=== PATIENT | female | born 1970 | race Caucasian/White ===

== ENCOUNTER 2019-05-08 16:14 | Inpatient (IN) | payer OTHER ==
--- NOTE | 2019-05-08 16:30 | PDOC ---
Rapid Medical Evaluation Time Seen by Provider: 05/08/19 16:16 Medical Evaluation: Allergies Allergy/AdvReac Type Severity Reaction Status Date / Time No Known Allergies Allergy Verified 08/01/15 19:42 05/08/19 16:27 I have performed a brief exam on this patient. CC: Chest pain, SOB, spinal tingling and feels "like I'm being hit in the hips with a hammer" PE: Speaking full sentences. Lungs CTAB. RRR. No m/r/g. No spinal or hip tenderness. Orders: cardiac w/u The patient will proceed to the ER for further evaluation. Discharge Disposition - Diagnosis Chest pain - Referrals - Patient Instructions - Post Discharge Activity
[2019-05-08 17:46] LABS: BASO % 0.5 % (0-2.0); EOS % 0.7 % (0-4.5); HEMATOCRIT 43.3 % (32.4-45.2); HEMOGLOBIN 14.5 GM/dL (10.7-15.3); MCH 29.2 pg (25.7-33.7); MCHC 33.6 g/dl (32.0-36.0); MEAN CELL VOLUME 87.1 fl (80-96); MEAN PLT VOLUME 9.5 fl (7.5-11.1); MONO % 7.9 % (3.8-10.2); NEUT % 62.9 % (42.8-82.8); PLATELET COUNT 258 K/MM3 (134-434); RBC 4.97 M/mm3 (3.60-5.2); WHITE BLOOD COUNT 9.3 K/mm3 (4.0-10.0)
[2019-05-08 18:11] LABS: ALBUMIN 4.2 g/dl (3.4-5.0); BILIRUBIN,TOTAL 0.4 mg/dL (0.2-1); BLOOD UREA NITROGEN 10.8 mg/dL (7-18); CALCIUM 9.8 mg/dL (8.5-10.1); CREATININE 0.8 mg/dL (0.55-1.3); POTASSIUM 4.1 mmol/L (3.5-5.1); TOT PROT 8.4 g/dl (6.4-8.2)
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
[2019-05-08 18:29] LABS: URINE APPEARANCE CLEAR; URINE BILIRUBIN NEGATIVE (NEGATIVE); URINE COLOR YELLOW; URINE GLUCOSE (UA) NEGATIVE (NEGATIVE); URINE KETONE NEGATIVE (NEGATIVE); URINE LEUK ESTERASE NEGATIVE (NEGATIVE); URINE NITRITE NEGATIVE (NEGATIVE); URINE PROTEIN NEGATIVE (NEGATIVE); URINE UROBILINOGEN 0.2 mg/dL (0.2-1.0)
--- NOTE | 2019-05-08 18:30 | PDOC ---
Documentation entered by Susan Palomino SCRIBE, acting as scribe for Cortney Doty MD. Cortney Doty MD: This documentation has been prepared by the Candelario cutler Mackenzie, SCRIBE, under my direction and personally reviewed by me in its entirety. I confirm that the documentation accurately reflects all work , treatment, procedures, and medical decision making performed by me. Attending Attestation - Resident Resident Name: JeffDelores - ED Attending Attestation I have performed the following: I have examined & evaluated the patient, The case was reviewed & discussed with the resident, I agree w/resident's findings & plan - HPI HPI: The patient is a 48 year old female, with a significant PMH of MS (diagnosed 2011) who presents to the emergency department with 2 weeks of worsening chest pressure. Patient states that the pressure has worsened in severity and become more frequent in the past 2 weeks. She also notes her symptoms secondary to MS have recently become worse (tripping more often, unable to get around the house with ease, numbness and tingling radiating down her legs with more strength). Two days ago she notes an episode where her vision in her right eye went daniels for a few hours and then went back to normal. The patient denies, shortness of breath, headache and dizziness. Denies fever, chills, nausea, vomiting, diarrhea and constipation. Denies dysuria, frequency, urgency and hematuria. Allergies: NKDA Neurologist: Carolyn 05/08/19 18:02 - Physicial Exam PE: 05/08/19 17:54 GENERAL: The patient is in no acute distress, answers all questions appropriately ENT: Moist mucous membranes. NECK: Normal range of motion, supple, no nuchal rigidity LUNGS: Breath sounds equal, clear to auscultation bilaterally. No wheezes, and no crackles. HEART:Regular rate and rhythm, normal S1 and S2 without murmur, rub or gallop. No chest wall tenderness to palpation ABDOMEN: Soft, nontender, normoactive bowel sounds. EXTREMITIES: Normal range of motion, no edema. NEUROLOGICAL: Cranial nerves II through XII grossly intact. Normal speech. No focal neurological deficits. SKIN: Warm, Dry, normal turgor, no rashes or lesions noted. - Medical Decision Making 05/08/19 17:55 48 yo F h/o HLD and MS (not on any chronic medications) presenting with a complaint of chest pain Pain has been present for the past 2 weeks, midsternal, described as pressure, no radiation, no associated with exertion Pain is intermittent, lasting minutes. She has between 4 and 7 episodes of pain daily Pt was attributing her pain to her MS Pt son encouraged her to come in to the ER Of note, pt has been falling more frequently at home, believes she is having an MS flair Examination not concerning DD: ACS, musculoskeletal pain, Pneumonia, pneumothoax, PE less likely Will do: Labs, EKG, CXR Will contact Neuro re: initiating treatment EKG: NSR rate of 83 bpm, LAD, no st elevation or depression, t waves upright, st segment abn v1 05/08/19 18:30 Laboratory Tests 05/08/19 05/08/19 05/08/19 17:30 17:30 17:55 Sodium 139 Potassium 4.1 Chloride 104 Carbon Dioxide 29 BUN 10.8 Creatinine 0.8 Random Glucose 99 Creatine Kinase 95 Troponin I < 0.02 Urine Blood Negative Urine Nitrite Negative Ur Leukocyte Esterase Negative 05/08/19 19:38 Laboratory Tests 05/08/19 05/08/19 17:30 17:30 WBC 9.3 Hgb 14.5 Hct 43.3 Plt Count [address] head negative Will admit Chest pain unlikely cardiac, will trend call placed to Dr Leon, awaiting response Clinical impression: chest pain, initial presentation ?MS flair, initial presentation
[2019-05-08] MEDS ORDERED: ACETAMINOPHEN 1000 MG/100 ML VIAL (NON FORMULARY) IVPB ONE (18:44)
[2019-05-08 19:29] LABS: INR 0.94 (0.83-1.09); PROTHROMBIN TIME (PATIENT) 11.1 SEC (9.7-13.0)
--- NOTE | 2019-05-08 23:42 | PDOC ---
*Physical Exam - Vital Signs Last Vital Signs Temp Pulse Resp BP Pulse Ox 98 F 88 18 146/75 99 05/08/19 16:27 05/08/19 16:27 05/08/19 16:27 05/08/19 16:27 05/08/19 16:27 ED Treatment Course - LABORATORY CBC & Chemistry Diagram: 05/08/19 17:30 05/08/19 17:30 - ADDITIONAL ORDERS Additional order review: Laboratory Results 05/08/19 05/08/19 05/08/19 17:55 17:30 17:30 PT with INR 11.10 INR 0.94 Sodium Potassium Chloride Carbon Dioxide Anion Gap BUN Creatinine Est GFR (CKD-EPI)AfAm Est GFR (CKD-EPI)NonAf Random Glucose Calcium Magnesium 2.2 Total Bilirubin AST ALT Alkaline Phosphatase Creatine Kinase Troponin I Total Protein Albumin Urine Color Yellow Urine Appearance Clear Urine pH 7.0 Ur Specific [place] 1.021 Urine Protein Negative Urine Glucose (UA) Negative Urine Ketones Negative Urine Blood Negative Urine Nitrite Negative Urine Bilirubin Negative Urine Urobilinogen 0.2 Ur Leukocyte Esterase Negative Urine HCG, Qual 05/08/19 05/08/19 05/08/19 17:30 17:30 17:30 PT with INR INR Sodium 139 Potassium 4.1 Chloride 104 Carbon Dioxide 29 Anion Gap 6 L BUN 10.8 Creatinine 0.8 Est GFR (CKD-EPI)AfAm 101.04 Est GFR (CKD-EPI)NonAf 87.18 Random Glucose 99 Calcium 9.8 Magnesium Total Bilirubin 0.4 AST 21 ALT 39 Alkaline Phosphatase 103 Creatine Kinase 95 Troponin I < 0.02 Total Protein 8.4 H Albumin 4.2 Urine Color Urine Appearance Urine pH Ur Specific [place] Urine Protein Urine Glucose (UA) Urine Ketones Urine Blood Urine Nitrite Urine Bilirubin Urine Urobilinogen Ur Leukocyte Esterase Urine HCG, Qual Negative 05/08/19 17:30 RBC 4.97 MCV 87.1 MCHC 33.6 RDW 13.0 MPV 9.5 Neutrophils % 62.9 Lymphocytes % 28.0 Monocytes % 7.9 Eosinophils % 0.7 Basophils % 0.5 - RADIOLOGY Radiology Studies Ordered: Category Date Time Status HEAD CT WITHOUT CONTRAST [CT] Stat CT Scan 05/08/19 19:26 Completed - Medications Given in the ED: ED Medications Discontinued Medications Generic Name Dose Route Start Last Admin Trade Name Freq PRN Reason Stop Dose Admin Acetaminophen 1,000 mg 05/08/19 18:44 05/08/19 19:09 Ofirmev Injection - IVPB 05/08/19 18:45 1,000 mg ONCE ONE Administration *DC/Admit/Observation/Transfer Diagnosis at time of Disposition: Multiple sclerosis Chest pain Qualifiers: Chest pain type: unspecified Qualified Code(s): R07.9 - Chest pain, unspecified - Discharge Dispostion Condition at time of disposition: Stable Decision to Admit order Date/Time: Decision to Admit Order Category Date Time Status Decision to Admit to Hospital Routine Admission 05/08/19 22:50 Active - Referrals - Patient Instructions - Post Discharge Activity
--- NOTE | 2019-05-09 00:30 | PN ---
Teaching Attending Note ATTENDING PHYSICIAN STATEMENT I saw and evaluated the patient. I reviewed the resident's note and discussed the case with the resident. I agree with the resident's findings and plan as documented. Seen and examined; please refer to resident note for further historical information. Briefly, this is a 48 y/o female presenting to the ER with a CC of multiple issues; weeks of atypical chest pain with CP with some parasthesias , etc. Known demtyelinating disease but did not want repeat LP or to start sofi VS, labs, imaging reviewed NAD, AAO, resting in bed NC AT EOMI PERRLA RRR s1/2 NT ND +BS CN2-12 wnl, no fnd Normal mood, appropriate behavior EKG reviewed; telemetry ordered CXR without acute findings CT head with no acute findings 02/2019 MRI with demyelinating plaques ASSESSMENT AND PLAN:
--- NOTE | 2019-05-09 01:18 | HP ---
CHIEF COMPLAINT: 1. Chest pain 2. Worsening MS symptoms PCP: Dr. Muhammad HISTORY OF PRESENT ILLNESS: Pt is a 48 y/o F w PMH MS presenting to ED with c/o chest pain. Pain is located in sternal region, started 2 weeks ago, characterized by pressure, non-radiating, associated with an increase in MS symptoms such as RIGHT eye blurriness and lower back numbness, has an on/off time course, is not exacerbated or alleviated by anything, not better with change in position, and can vary from discomfort to 10/10 pain. She states she took Aleve with no abatement of symptoms. She denies arm pain, neck pain, jaw pain. Pt denies SOB and NVFD. She states that she has not has heartburn, indegestion or other GERD-like symptoms. Pt reports that she was not formally diagnosed but was made aware of her MS in 2011. With establishment of care and POSITIVE MRI in January 2019 s/p increase in MS symptoms, the pt reports she is considering what medical management to pursue. ER course was notable for: (1) CT head NEG: No acute intracranial path. (2) NEG troponin I x1 Recent Travel: Denies PAST MEDICAL HISTORY: MS PAST SURGICAL HISTORY: Social History: Smoking: Denies Alcohol: Denies Drugs: Denies Family History: Mother - breast cancer, Father - etoh abuse Allergies: NKFDA No Known Allergies Allergy (Verified 05/08/19 16:30) HOME MEDICATIONS: Home Medications Medication Instructions Recorded NK [No Known Home Medication] 08/01/15 REVIEW OF SYSTEMS CONSTITUTIONAL: Absent: fever, chills, diaphoresis, POS generalized weakness, malaise, loss of appetite, weight change HEENT: Absent: rhinorrhea, nasal congestion, throat pain, throat swelling, difficulty swallowing, mouth swelling, ear pain, eye pain, visual changes CARDIOVASCULAR: Absent: POS chest pain, syncope, palpitations, irregular heart rate, lightheadedness, peripheral edema RESPIRATORY: Absent: cough, shortness of breath, dyspnea with exertion, orthopnea, wheezing, stridor, hemoptysis GASTROINTESTINAL: Absent: abdominal pain, abdominal distension, nausea, vomiting, diarrhea, constipation, melena, hematochezia GENITOURINARY: Absent: dysuria, frequency, urgency, hesitancy, hematuria, flank pain, genital pain MUSCULOSKELETAL: Absent: myalgia, arthralgia, joint swelling, POS back pain, neck pain SKIN: Absent: rash, itching, pallor HEMATOLOGIC/IMMUNOLOGIC: Absent: easy bleeding, easy bruising, lymphadenopathy, frequent infections ENDOCRINE: Absent: unexplained weight gain, unexplained weight loss, heat intolerance, cold intolerance NEUROLOGIC: Absent: headache, POS focal weakness or paresthesias, dizziness, unsteady gait, seizure, mental status changes, bladder or bowel incontinence PSYCHIATRIC: Absent: anxiety, depression, suicidal or homicidal ideation, hallucinations. PHYSICAL EXAMINATION Vital Signs - 24 hr 05/08/19 16:27 Temperature 98 F Pulse Rate 88 Respiratory 18 Rate Blood Pressure 146/75 O2 Sat by Pulse 99 Oximetry (%) GENERAL: Awake, alert, and fully oriented, in no acute distress. Antalig posture upon active flexion of back i.e to pivot in bed HEAD: Normal with no signs of trauma. EYES: Pupils equal, round and reactive to light, and POS sluggish accommodation. Extraocular movements intact, sclera anicteric, conjunctiva clear. EARS, NOSE, THROAT: Ears normal, nares patent, oropharynx clear without exudates. Moist mucous membranes. NECK: Normal range of motion, supple without lymphadenopathy, JVD, or masses. LUNGS: Breath sounds equal, clear to auscultation bilaterally. No wheezes, and no crackles. No accessory muscle use. HEART: Regular rate and rhythm, normal S1 and S2 without murmur, rub or gallop. ABDOMEN: Soft, nontender, not distended, normoactive bowel sounds, no guarding, no rebound, no masses. No hepatomegaly or splenomegaly. MUSCULOSKELETAL: Normal range of motion at all joints. No bony deformities or tenderness. No CVA tenderness. UPPER EXTREMITIES: 2+ pulses, warm, well-perfused. No cyanosis. No clubbing. No peripheral edema. LOWER EXTREMITIES: 2+ pulses, warm, well-perfused. No calf tenderness. No peripheral edema. NEUROLOGICAL: Cranial nerves III-XII intact. Normal speech. Normal gait. PSYCHIATRIC: Cooperative. Good eye contact. Appropriate mood and affect. SKIN: Warm, dry, normal turgor, no rashes or lesions noted, normal capillary refill. HEART SCORE 2: 0.9-1.7% risk of adverse cardiac event. In the HEART Score study , these patients were discharged Laboratory Results - last 24 hr 05/08/19 05/08/1919 17:30 17:30 17:30 WBC 9.3 RBC 4.97 Hgb 14.5 Hct 43.3 MCV 87.1 MCH 29.2 MCHC 33.6 RDW 13.0 Plt Count 258 MPV 9.5 Absolute Neuts (auto) 5.9 Neutrophils % 62.9 Lymphocytes % 28.0 Monocytes % 7.9 Eosinophils % 0.7 Basophils % 0.5 Nucleated RBC % 0 PT with INR INR Sodium 139 Potassium 4.1 Chloride 104 Carbon Dioxide 29 Anion Gap 6 L BUN 10.8 Creatinine 0.8 Est GFR (CKD-EPI)AfAm 101.04 Est GFR (CKD-EPI)NonAf 87.18 Random Glucose 99 Calcium 9.8 Magnesium Total Bilirubin 0.4 AST 21 ALT 39 Alkaline Phosphatase 103 Creatine Kinase 95 Troponin I < 0.02 Total Protein 8.4 H Albumin 4.2 Urine Color Urine Appearance Urine pH Ur Specific [place] Urine Protein Urine Glucose (UA) Urine Ketones Urine Blood Urine Nitrite Urine Bilirubin Urine Urobilinogen Ur Leukocyte Esterase Urine HCG, Qual 05/08/19 05/08/19 05/08/19 17:30 17:30 17:30 WBC RBC Hgb Hct MCV MCH MCHC RDW Plt Count MPV Absolute Neuts (auto) Neutrophils % Lymphocytes % Monocytes % Eosinophils % Basophils % Nucleated RBC % PT with INR 11.10 INR 0.94 Sodium Potassium Chloride Carbon Dioxide Anion Gap BUN Creatinine Est GFR (CKD-EPI)AfAm Est GFR (CKD-EPI)NonAf Random Glucose Calcium Magnesium 2.2 Total Bilirubin AST ALT Alkaline Phosphatase Creatine Kinase Troponin I Total Protein Albumin Urine Color Urine Appearance Urine pH Ur Specific [place] Urine Protein Urine Glucose (UA) Urine Ketones Urine Blood Urine Nitrite Urine Bilirubin Urine Urobilinogen Ur Leukocyte Esterase Urine HCG, Qual Negative 05/08/19 17:55 WBC RBC Hgb Hct MCV MCH MCHC RDW Plt Count MPV Absolute Neuts (auto) Neutrophils % Lymphocytes % Monocytes % Eosinophils % Basophils % Nucleated RBC % PT with INR INR Sodium Potassium Chloride Carbon Dioxide Anion Gap BUN Creatinine Est GFR (CKD-EPI)AfAm Est GFR (CKD-EPI)NonAf Random Glucose Calcium Magnesium Total Bilirubin AST ALT Alkaline Phosphatase Creatine Kinase Troponin I Total Protein Albumin Urine Color Yellow Urine Appearance Clear Urine pH 7.0 Ur Specific [place] 1.021 Urine Protein Negative Urine Glucose (UA) Negative Urine Ketones Negative Urine Blood Negative Urine Nitrite Negative Urine Bilirubin Negative Urine Urobilinogen 0.2 Ur Leukocyte Esterase Negative Urine HCG, Qual ASSESSMENT/PLAN: 48 y/o F w PMH MS presenting to ED with CP and increasing neurological symptoms consistent with progressive MS symptomatology # MS - CP concurrent w increasing MS symptoms - Prednisone to control inflammation - Tylenol if pain persists - Refer to neurology # R/O CAD - NEG troponin x1 - NEG EKG # F/E/N - No standig fliuds - F/u electrolytes - Normal diet # DVT prophylaxis - Lovinox # Dispo - Full code - F/U PCP upon d/c Davy Diehl MD Visit type - Emergency Visit Emergency Visit: Yes ED Registration Date: 05/08/19 Care time: The patient presented to the Emergency Department on the above date and was hospitalized for further evaluation of their emergent condition. - New Patient This patient is new to me today: Yes Date on this admission: 05/09/19 - Critical Care Critical Care patient: No ATTENDING PHYSICIAN STATEMENT I saw and evaluated the patient. I reviewed the resident's note and discussed the case with the resident. I agree with the resident's findings and plan as documented. SUBJECTIVE: OBJECTIVE: ASSESSMENT AND PLAN:
--- NOTE | 2019-05-09 08:18 | PN ---
Progress Note, Physician Chief Complaint: Chest Pain History of Present Illness: Previous notes and events reviewed awake and alert NAD complain of pressure like mid chest pain without SOB or dizziness complain of "needle" like pain to back trop neg x 1 - Current Medication List Current Medications: Active Medications Aspirin (Asa -) 81 mg PO DAILY LEONEL Atorvastatin Calcium (Lipitor -) 40 mg PO HS LEONEL Enoxaparin Sodium (Lovenox -) 40 mg SQ DAILY LEONEL - Objective Vital Signs: Vital Signs Temperature 97.8 F 05/09/19 05:40 Pulse Rate 66 05/09/19 05:40 Respiratory Rate 16 05/09/19 05:40 Blood Pressure 120/64 05/09/19 05:40 O2 Sat by Pulse Oximetry (%) 97 05/09/19 05:40 Constitutional: Yes: No Distress, Calm Eyes: Yes: Conjunctiva Clear HENT: Yes: Atraumatic Cardiovascular: Yes: Regular Rate and Rhythm Respiratory: Yes: Regular, CTA Bilaterally Gastrointestinal: Yes: Normal Bowel Sounds, Soft Musculoskeletal: Yes: Muscle Weakness (r side) Extremities: Yes: WNL Edema: No Neurological: Yes: Alert, Weakness (r side weakness) Psychiatric: Yes: Alert Labs: CBC, BMP 05/08/19 17:30 05/08/19 17:30 INR, PTT INR 0.94 (0.83-1.09) 05/08/19 17:30 - ....Imaging Cat Scan: Report Reviewed Problem List - Problems (1) Chest pain Assessment/Plan: -Cardiology consult -Tele monitoring -trop neg x 1, pending repeat trop -Aspirin Code(s): R07.9 - CHEST PAIN, UNSPECIFIED Qualifiers: Chest pain type: unspecified Qualified Code(s): R07.9 - Chest pain, unspecified (2) Multiple sclerosis Assessment/Plan: -Neurology consult -fall precaution Code(s): G35 - MULTIPLE SCLEROSIS Assessment/Plan see problem list dvt ppx
[2019-05-09 09:30] LABS: BLOOD UREA NITROGEN 10.7 mg/dL (7-18); CALCIUM 9.1 mg/dL (8.5-10.1); CREATININE 0.8 mg/dL (0.55-1.3); MAGNESIUM 2.1 mg/dL (1.8-2.4); PHOSPHOROUS 3.5 mg/dL (2.5-4.9); POTASSIUM 4.3 mmol/L (3.5-5.1)
--- NOTE | 2019-05-09 09:36 | CON.NEURO ---
Consult Consult Specialty:: [facility] Referred by:: ER Reason for Consultation:: MS - History of Present Illness History of Present Illness: 48 years old woman with hx of multiple sclerosis recently diagnosed not on any immune modulator presented to the hospital with chest pain and headache. No report of any recent travel no report of any weight loss or weight gain. Patient complains of electrical sensation from the spine going down patient with eye pain patient started on Decadron. No report of any recent head trauma there is no family history of multiple sclerosis patient's MRI in February was consistent with demyelinating disease patient refused a spinal tap patient wants to be on medication - History Source History Provided By: Patient Limitations to Obtaining History: No Limitations - Past Medical History ...LMP: 05/15/14 - Alcohol/Substance Use Hx Alcohol Use: No - Smoking History Smoking history: Never smoked Have you smoked in the past 12 months: No Home Medications - Allergies Allergies/Adverse Reactions: Allergies Allergy/AdvReac Type Severity Reaction Status Date / Time No Known Allergies Allergy Verified 05/08/19 16:30 - Home Medications Home Medications: Ambulatory Orders NK [No Known Home Medication] 08/01/15 Family Disease History - Family Disease History Family History: Denies (stroke) Review of Systems - Review of Systems Neurological: reports: Dizziness, Headache, Incoordination, Numbness, Parasthesia Physical Exam-Neuro Vital Signs: Vital Signs Temperature 97.8 F 05/09/19 05:40 Pulse Rate 66 05/09/19 05:40 Respiratory Rate 16 05/09/19 05:40 Blood Pressure 120/64 05/09/19 05:40 O2 Sat by Pulse Oximetry (%) 97 05/09/19 05:40 Constitutional: Yes: Well Nourished Neck: Yes: WNL Cardiovascular: Yes: WNL Labs: CBC, BMP 05/09/19 08:24 INR, PTT INR 0.94 (0.83-1.09) 05/08/19 17:30 - Neuro Exam Level Of Consciousness: Yes: Oriented to Person, Oriented to Place, Oriented to Time Eyes: Yes: PERRLA Speech: WNL Dominant Hand: Right Cranial Nerves II-XII Intact: Yes Gag: Present DTR's: 0 Right Bicep, 0 Left Tricep, 1+ Right Tricep, 1+ Left Brachioradialis, 1 + Right Brachioradialis Babinski: Absent Response to light touch: Normal Response to pain prick: Normal Response to temperature: Abnormal Response to vibration: Abnormal Motor Strength: 3/5: Left Arm, Right Arm, Left Leg, Right Leg Imaging - Results MRI: Image Reviewed Problem List - Problems (1) Multiple sclerosis Assessment/Plan: MRI cervical spine with and without contrast Decadron 4 mg IV every 6 hours Famotidine 150 once daily BGM every shift. DVT prophylaxis. Code(s): G35 - MULTIPLE SCLEROSIS
[2019-05-09 09:44] LABS: BASO % 0.4 % (0-2.0); EOS % 0.8 % (0-4.5); HEMATOCRIT 39.4 % (32.4-45.2); HEMOGLOBIN 13.4 GM/dL (10.7-15.3); LYMPH % 34.5 % (8-40); MCH 29.8 pg (25.7-33.7); MCHC 34.1 g/dl (32.0-36.0); MEAN CELL VOLUME 87.3 fl (80-96); MEAN PLT VOLUME 9.4 fl (7.5-11.1); MONO % 6.3 % (3.8-10.2); PLATELET COUNT 238 K/MM3 (134-434); RBC 4.51 M/mm3 (3.60-5.2); RDW 13.1 % (11.6-15.6); WHITE BLOOD COUNT 6.2 K/mm3 (4.0-10.0)
[2019-05-09] MEDS: ENOXAPARIN NA (PORCINE) 40 MG/0.4 ML DISP.SYRIN SQ SCH (09:57)
[2019-05-09] MEDS: ASPIRIN 81 MG CHEWABLE TABLETS PO SCH (09:57)
--- NOTE | 2019-05-09 15:19 | EKG ---
Test Reason : Blood Pressure : / mmHG Vent. Rate : 083 BPM Atrial Rate : 083 BPM P-R Int : 162 ms QRS Dur : 108 ms QT Int : 374 ms P-R-T Axes : 036 -41 040 degrees QTc Int : 439 ms NORMAL SINUS RHYTHM LEFT AXIS DEVIATION MODERATE VOLTAGE CRITERIA FOR LVH, MAY BE NORMAL VARIANT CANNOT RULE OUT SEPTAL INFARCT (CITED ON OR BEFORE 20-MAY-2014) ABNORMAL ECG WHEN COMPARED WITH ECG OF 20-MAY-2014 11:33, NO SIGNIFICANT CHANGE WAS FOUND Confirmed by MD Wesley, Caesar ([id number]) on 05/09/2019 3:19:13 PM Referred By: Confirmed By:Caesar Olson MD
[2019-05-09 16:23] VITALS: BMI 33.0
--- NOTE | 2019-05-09 17:28 | CON.CARD ---
Consult Consult Specialty:: Cardiology Reason for Consultation:: Chest pain - History of Present Illness Chief Complaint: Chest pain History of Present Illness: This is a 48 year old female with a PMH of MS. She presents now with chest pain that she describes as someone hugging her. This has been occurring intermittently for several weeks. It is non radiating and not related to exertion. Trops negative EKG NSR at 83 BPM with LAD, LVH, and NSSTTW changes. - Past Medical History ...LMP: 05/15/14 - Alcohol/Substance Use Hx Alcohol Use: No - Smoking History Smoking history: Never smoked Have you smoked in the past 12 months: No Home Medications - Allergies Allergies/Adverse Reactions: Allergies Allergy/AdvReac Type Severity Reaction Status Date / Time No Known Allergies Allergy Verified 05/08/19 16:30 - Home Medications Home Medications: Ambulatory Orders NK [No Known Home Medication] 08/01/15 Vital Signs: Vital Signs Temperature 98 F 05/09/19 16:06 Pulse Rate 72 05/09/19 16:06 Respiratory Rate 18 05/09/19 16:06 Blood Pressure 147/88 05/09/19 16:06 O2 Sat by Pulse Oximetry (%) 96 05/09/19 14:51 Constitutional: Yes: No Distress Eyes: Yes: WNL HENT: Yes: WNL Neck: Yes: WNL Respiratory: Yes: CTA Bilaterally Gastrointestinal: Yes: Soft Cardiovascular: Yes: Regular Rate and Rhythm Heart Sounds: Yes: S1, S2 Extremities: Yes: WNL Edema: No Neurological: Yes: Alert, Oriented - Other Data Labs, Other Data: CBC, BMP 05/09/19 08:24 05/09/19 08:24 INR, PTT INR 0.94 (0.83-1.09) 05/08/19 17:30 Troponin, BNP 05/08/19 05/09/19 17:30 16:35 Troponin I < 0.02 < 0.02 Troponin, BNP 05/08/19 05/09/19 17:30 16:35 Troponin I < 0.02 < 0.02 Assessment/Plan 48 year old female with a PMH of MS. She presents now with chest pain that she describes as someone hugging her. This has been occurring intermittently for several weeks. It is non radiating and not related to exertion. Trops negative EKG NSR at 83 BPM with LAD, LVH, and NSSTTW changes. Would have her do a Lexiscan stress test and an echocardiogram. These can be done as an outpatient or inpatient is she is going still be here Saturday.
[2019-05-09] MEDS ORDERED: ACETAMINOPHEN 325 MG TABLET (FP) PO PRN (20:34)
[2019-05-09] MEDS: ATORVASTATIN CA 40 MG TABLET (FP) PO SCH (21:28)
[2019-05-09] MEDS: ACETAMINOPHEN 1000 MG/100 ML VIAL (NON FORMULARY) IVPB PRN (21:34)
[2019-05-10 08:10] LABS: HEMOGLOBIN 13.7 GM/dL (10.7-15.3); MCH 29.7 pg (25.7-33.7); MCHC 34.2 g/dl (32.0-36.0); MEAN CELL VOLUME 86.8 fl (80-96); MEAN PLT VOLUME 9.4 fl (7.5-11.1); PLATELET COUNT 229 K/MM3 (134-434); RBC 4.61 M/mm3 (3.60-5.2); RDW 12.8 % (11.6-15.6); WHITE BLOOD COUNT 5.8 K/mm3 (4.0-10.0)
[2019-05-10 08:41] LABS: ALBUMIN 3.7 g/dl (3.4-5.0); ALK PHOS 83 U/L (45-117); ANION GAP 5 MMOL/L (8-16); BILIRUBIN,TOTAL 0.6 mg/dL (0.2-1); CALCIUM 9.4 mg/dL (8.5-10.1); CHLORIDE 108 mmol/L (98-107); CO2 29 mmol/L (21-32); CREATININE 0.8 mg/dL (0.55-1.3); GLUCOSE,RANDOM 88 mg/dL (74-106); SGOT/AST 19 U/L (15-37); SGPT/ALT 35 U/L (13-61); SODIUM 141 mmol/L (136-145); TOT PROT 7.4 g/dl (6.4-8.2)
--- NOTE | 2019-05-10 08:59 | PN ---
Progress Note, Physician Chief Complaint: Chest Pain History of Present Illness: Previous notes and events reviewed awake and alert NAD sts chest pain is improving tingling to hands and feet - Current Medication List Current Medications: Active Medications Acetaminophen (Ofirmev Injection -) 1,000 mg IVPB Q6H PRN PRN Reason: PAIN OR FEVER Last Admin: 05/09/19 21:34 Dose: 1,000 mg Aspirin (Asa -) 81 mg PO DAILY [facility] Last Admin: 05/09/19 09:57 Dose: 81 mg Atorvastatin Calcium (Lipitor -) 40 mg PO HS [facility] Last Admin: 05/09/19 21:28 Dose: 40 mg Dexamethasone Sodium Phosphate (Decadron Injection -) 4 mg IVPB Q6H-IV [facility] Enoxaparin Sodium (Lovenox -) 40 mg SQ DAILY [facility] Last Admin: 05/09/19 09:57 Dose: 40 mg Pantoprazole Sodium (Protonix -) 40 mg PO DAILY [facility] - Objective Vital Signs: Vital Signs Temperature 98.1 F 05/10/19 06:00 Pulse Rate 66 05/10/19 06:00 Respiratory Rate 18 05/10/19 06:00 Blood Pressure 142/65 05/10/19 06:00 O2 Sat by Pulse Oximetry (%) 98 05/09/19 20:23 Constitutional: Yes: No Distress, Calm Eyes: Yes: Conjunctiva Clear HENT: Yes: Atraumatic Cardiovascular: Yes: Regular Rate and Rhythm Respiratory: Yes: Regular, CTA Bilaterally Gastrointestinal: Yes: Normal Bowel Sounds, Soft Musculoskeletal: Yes: Muscle Weakness (R side) Extremities: Yes: WNL Edema: No Neurological: Yes: Alert, Tingling (b/l hands and feet), Weakness (R side) Psychiatric: Yes: Alert, Oriented Labs: CBC, BMP 05/10/19 06:55 05/10/19 06:55 INR, PTT INR 0.94 (0.83-1.09) 05/08/19 17:30 Microbiology 05/08/19 17:55 Urine - Urine Clean Catch Urine Culture - Final NO GROWTH OBTAINED Problem List - Problems (1) Chest pain Assessment/Plan: -Cardiology consult -Tele monitoring -trop neg x 2 -Aspirin -Echo ordered Code(s): R07.9 - CHEST PAIN, UNSPECIFIED Qualifiers: Chest pain type: unspecified Qualified Code(s): R07.9 - Chest pain, unspecified (2) Multiple sclerosis Assessment/Plan: -Neurology on board -fall precaution -pending MRI cervical spine -Decadron 4mg IVPB q6h Code(s): G35 - MULTIPLE SCLEROSIS (3) Hyperlipidemia Assessment/Plan: -Atorvastatin -lipid panel reviewed Code(s): E78.5 - HYPERLIPIDEMIA, UNSPECIFIED Assessment/Plan see problem list dvt ppx
[2019-05-10] MEDS ORDERED: ASPIRIN COATED 81 MG TABLET.EC ONE (11:05)
[2019-05-10] MEDS: ASPIRIN 81 MG CHEWABLE TABLETS PO SCH (12:20)
[2019-05-10] MEDS: DEXAMETHASONE SOD PHOSPHATE 4 MG/1 ML VIAL IVPB SCH ×3 (12:20→22:45)
[2019-05-10] MEDS: ENOXAPARIN NA (PORCINE) 40 MG/0.4 ML DISP.SYRIN SQ SCH (12:21)
[2019-05-10] MEDS: PANTOPRAZOLE 40 MG TABLET (FP) PO SCH (12:21)
[2019-05-10] MEDS: ACETAMINOPHEN 1000 MG/100 ML VIAL (NON FORMULARY) IVPB PRN (12:35)
--- NOTE | 2019-05-10 15:58 | PN ---
Progress Note, Physician Chief Complaint: Chest pain History of Present Illness: This is a 48 year old female with a PMH of MS. She presents now with chest pain that she describes as someone hugging her. This has been occurring intermittently for several weeks. It is non radiating and not related to exertion. Trops negative EKG NSR at 83 BPM with LAD, LVH, and NSSTTW changes. - Current Medication List Current Medications: Active Medications Acetaminophen (Ofirmev Injection -) 1,000 mg IVPB Q6H PRN PRN Reason: PAIN OR FEVER Last Admin: 05/10/19 12:35 Dose: 1,000 mg Aspirin (Asa -) 81 mg PO DAILY [facility] Last Admin: 05/10/19 12:20 Dose: 81 mg Atorvastatin Calcium (Lipitor -) 40 mg PO HS [facility] Last Admin: 05/09/19 21:28 Dose: 40 mg Dexamethasone Sodium Phosphate (Decadron Injection -) 4 mg IVPB Q6H-IV [facility] Last Admin: 05/10/19 12:20 Dose: 4 mg Enoxaparin Sodium (Lovenox -) 40 mg SQ DAILY [facility] Last Admin: 05/10/19 12:21 Dose: 40 mg Pantoprazole Sodium (Protonix -) 40 mg PO DAILY [facility] Last Admin: 05/10/19 12:21 Dose: 40 mg - Objective Vital Signs: Vital Signs Temperature 98.1 F 05/10/19 06:00 Pulse Rate 66 05/10/19 06:00 Respiratory Rate 18 05/10/19 06:00 Blood Pressure 142/65 05/10/19 06:00 O2 Sat by Pulse Oximetry (%) 98 05/09/19 20:23 Constitutional: Yes: No Distress Eyes: Yes: WNL HENT: Yes: WNL Neck: Yes: WNL Cardiovascular: Yes: Regular Rate and Rhythm Respiratory: Yes: WNL, CTA Bilaterally Gastrointestinal: Yes: Normal Bowel Sounds, Soft Extremities: Yes: WNL Edema: No Neurological: Yes: Alert, Oriented Labs: CBC, BMP 05/10/19 06:55 05/10/19 06:55 INR, PTT INR 0.94 (0.83-1.09) 05/08/19 17:30 Assessment/Plan 48 year old female with a PMH of MS. She presents now with chest pain that she describes as someone hugging her. This has been occurring intermittently for several weeks. It is non radiating and not related to exertion. Trops negative EKG NSR at 83 BPM with LAD, LVH, and NSSTTW changes. Would have her do a Lexiscan stress test and an echocardiogram. Further plans pending the above test results.
[2019-05-10] MEDS: ATORVASTATIN CA 40 MG TABLET (FP) PO SCH (22:44)
[2019-05-11] MEDS: DEXAMETHASONE SOD PHOSPHATE 4 MG/1 ML VIAL IVPB SCH ×5 (03:54→21:51)
[2019-05-11 08:40] LABS: BILIRUBIN,TOTAL 0.5 mg/dL (0.2-1); BLOOD UREA NITROGEN 11.6 mg/dL (7-18); CALCIUM 9.4 mg/dL (8.5-10.1); CREATININE 0.8 mg/dL (0.55-1.3); POTASSIUM 4.5 mmol/L (3.5-5.1); TOT PROT 8.1 g/dl (6.4-8.2)
[2019-05-11 09:13] LABS: HEMATOCRIT 40.6 % (32.4-45.2); HEMOGLOBIN 14.1 GM/dL (10.7-15.3); MCH 29.8 pg (25.7-33.7); MCHC 34.8 g/dl (32.0-36.0); MEAN CELL VOLUME 85.8 fl (80-96); MEAN PLT VOLUME 9.6 fl (7.5-11.1); PLATELET COUNT 281 K/MM3 (134-434); RBC 4.74 M/mm3 (3.60-5.2); RDW 12.5 % (11.6-15.6)
[2019-05-11] MEDS ORDERED: REGADENOSON 0.4 MG/5 ML PRE-FILLED SYRINGE IVPUSH ONE ×2 (09:17→10:00)
[2019-05-11] MEDS: PANTOPRAZOLE 40 MG TABLET (FP) PO SCH ×2 (10:25→12:46)
[2019-05-11] MEDS: ASPIRIN 81 MG CHEWABLE TABLETS PO SCH ×2 (10:25→12:46)
[2019-05-11] MEDS: ENOXAPARIN NA (PORCINE) 40 MG/0.4 ML DISP.SYRIN SQ SCH ×2 (10:25→12:46)
--- NOTE | 2019-05-11 12:26 | ECHO ---
Name: BEN CASPER Exam:Adult Echocardiogram Study Date: 05/11/2019 09:28 AM Age: 48 yrs Reason For Study: Chest pain Height: 67 in Weight: 211 lb BSA: 2.1 m2 MMode/2D Measurements & Calculations IVSd: 0.96 cm Ao root diam: 2.7 cm LVIDd: 4.5 cm LA dimension: 3.0 cm LVIDs: 3.1 cm LVPWd: 1.0 cm LVPWs: 1.6 cm EDV(Teich): 94.6 ml ESV(Teich): 38.2 ml LVOT diam: 1.9 cm RV S Homar: 11.1 cm/sec Doppler Measurements & Calculations Ao V2 max: 132.4 cm/sec LV V1 max P.7 mmHg Ao max P.0 mmHg LV V1 mean P.4 mmHg Ao V2 mean: 101.7 cm/sec LV V1 max: 119.8 cm/sec Ao mean P.5 mmHg LV V1 mean: 89.3 cm/sec Ao V2 VTI: 27.8 cm LV V1 VTI: 25.5 cm NELLA(I,D): 2.7 cm2 NELLA(V,D): 2.6 cm2 SV(LVOT): 74.6 ml PA V2 max: 128.3 cm/sec PA max P.6 mmHg Med Peak E' Homar: 7.2 cm/sec Lat Peak E' Homar: 9.5 cm/sec Procedure A complete two-dimensional transthoracic echocardiogram was performed (2D, M-mode, Doppler and color flow Doppler). Left Ventricle The left ventricle is normal in size. Left ventricular systolic function is normal. Ejection Fraction = 65- 70%. No regional wall motion abnormalities noted. Right Ventricle The right ventricle is normal size. The right ventricular systolic function is normal. RV systolic TD I is 11 cm/s. Atria The left atrial size is normal. Right atrial size is normal. Mitral Valve The mitral valve is normal in structure and function. There is no mitral regurgitation noted. Tricuspid Valve The tricuspid valve is normal in structure and function. No tricuspid regurgitation. Aortic Valve The aortic valve is normal in structure and function. No aortic regurgitation is present. Pulmonic Valve The pulmonic valve is not well visualized. Trace pulmonic valvular regurgitation. Great Vessels The aortic root is normal size. Pericardium/Pleura There is no pericardial effusion. Interpretation Summary The left ventricle is normal in size. Left ventricular systolic function is normal. No regional wall motion abnormalities noted. Ejection Fraction = 65-70%. The right ventricular systolic function is normal. The left atrial size is normal. Right atrial size is normal. Trace pulmonic valvular regurgitation. There is no pericardial effusion. Previous study is not available for comparison Jacinto Moran MD 05/11/2019 12:25 PM
--- NOTE | 2019-05-11 15:13 | PN ---
Progress Note, Physician Chief Complaint: patient seen and examined says numbness of leg much better no more chest pressure - Current Medication List Current Medications: Active Medications Acetaminophen (Ofirmev Injection -) 1,000 mg IVPB Q6H PRN PRN Reason: PAIN OR FEVER Last Admin: 05/10/19 12:35 Dose: 1,000 mg Aspirin (Asa -) 81 mg PO DAILY [facility] Last Admin: 05/11/19 12:46 Dose: 81 mg Atorvastatin Calcium (Lipitor -) 40 mg PO HS [facility] Last Admin: 05/10/19 22:44 Dose: 40 mg Dexamethasone Sodium Phosphate (Decadron Injection -) 4 mg IVPB Q6H-IV [facility] Last Admin: 05/11/19 12:46 Dose: 4 mg Enoxaparin Sodium (Lovenox -) 40 mg SQ DAILY [facility] Last Admin: 05/11/19 12:46 Dose: 40 mg Pantoprazole Sodium (Protonix -) 40 mg PO DAILY [facility] Last Admin: 05/11/19 12:46 Dose: 40 mg - Objective Vital Signs: Vital Signs Temperature 98.7 F 05/11/19 09:00 Pulse Rate 84 05/11/19 09:00 Respiratory Rate 20 05/11/19 09:00 Blood Pressure 121/66 05/11/19 09:00 O2 Sat by Pulse Oximetry (%) 96 05/10/19 18:00 Constitutional: Yes: Calm Cardiovascular: Yes: Regular Rate and Rhythm, S1, S2 Respiratory: Yes: CTA Bilaterally Neurological: Yes: Alert, Oriented Labs: CBC, BMP 05/11/19 07:15 05/11/19 07:15 INR, PTT INR 0.94 (0.83-1.09) 05/08/19 17:30 Problem List - Problems (1) Chest pain Assessment/Plan: s/p echo and stress test left ventricle systolic function normal cardiology on board has a cardiac cath done 2 yrs ago was normal Code(s): R07.9 - CHEST PAIN, UNSPECIFIED Qualifiers: Chest pain type: unspecified Qualified Code(s): R07.9 - Chest pain, unspecified (2) Hyperlipidemia Assessment/Plan: statin Code(s): E78.5 - HYPERLIPIDEMIA, UNSPECIFIED (3) Multiple sclerosis Assessment/Plan: iv decadron per neurology MRI pending Code(s): G35 - MULTIPLE SCLEROSIS
--- NOTE | 2019-05-11 15:35 | PN ---
Progress Note, Physician History of Present Illness: seen and examined today in nad. feeling well. no further chest pain. - Current Medication List Current Medications: Active Medications Acetaminophen (Ofirmev Injection -) 1,000 mg IVPB Q6H PRN PRN Reason: PAIN OR FEVER Last Admin: 05/10/19 12:35 Dose: 1,000 mg Aspirin (Asa -) 81 mg PO DAILY [facility] Last Admin: 05/11/19 12:46 Dose: 81 mg Atorvastatin Calcium (Lipitor -) 40 mg PO HS [facility] Last Admin: 05/10/19 22:44 Dose: 40 mg Dexamethasone Sodium Phosphate (Decadron Injection -) 4 mg IVPB Q6H-IV [facility] Last Admin: 05/11/19 12:46 Dose: 4 mg Enoxaparin Sodium (Lovenox -) 40 mg SQ DAILY [facility] Last Admin: 05/11/19 12:46 Dose: 40 mg Pantoprazole Sodium (Protonix -) 40 mg PO DAILY [facility] Last Admin: 05/11/19 12:46 Dose: 40 mg - Objective Vital Signs: Vital Signs Temperature 98.7 F 05/11/19 09:00 Pulse Rate 84 05/11/19 09:00 Respiratory Rate 20 05/11/19 09:00 Blood Pressure 121/66 05/11/19 09:00 O2 Sat by Pulse Oximetry (%) 96 05/10/19 18:00 Constitutional: Yes: No Distress, Calm Eyes: Yes: Conjunctiva Clear, EOM Intact, PERRL HENT: Yes: Atraumatic, Normocephalic Neck: Yes: Supple, Trachea Midline Cardiovascular: Yes: Regular Rate and Rhythm, S1, S2. No: Bradycardia, Tachycardia, Pulse Irregular, Bruit, JVD, Gallop, Murmur, Rub, S3, S4, Varicosities Respiratory: Yes: Regular, CTA Bilaterally. No: Rales, Rhonchi, Wheezes Gastrointestinal: Yes: Normal Bowel Sounds, Soft. No: Distention, Tenderness Extremities: Yes: WNL Edema: No Peripheral Pulses WNL: Yes Peripheral Pulses: Left Doralis Pedis: 2+, Right Dorsalis Pedis: 2+ Neurological: Yes: Alert, Oriented Psychiatric: Yes: Alert, Oriented Labs: CBC, BMP 05/11/19 07:15 05/11/19 07:15 INR, PTT INR 0.94 (0.83-1.09) 05/08/19 17:30 - ....Imaging Chest X-ray: Report Reviewed, Image Reviewed EKG: Report Reviewed, Image Reviewed Other: Report Reviewed, Image Reviewed (tele-no sig arrhythmias recorded) Assessment/Plan 48 year old female with a PMH of MS. She presents now with chest pain that she describes as someone hugging her. This has been occurring intermittently for several weeks. It is non radiating and not related to exertion. Cardiac enzymes wnl EKG NSR at 83 BPM with LAD, LVH, and NSSTTW changes. Echo showed normal LVEF, only minimal valvular abnl Nuclear stress test today showed a possible small area of minimal inferior wall ischemia and normal LVEF Cardiac cath done at [facility] 08/29/2016 for the same stress test results and same symptoms showed normal coronary arteries. Results were reviewed in [facility] EMR Most likely defect secondary to diaphragmatic attenuation artifact Would not recc a repeat cardiac cath at this time. Symptoms unlikely due to CAD Consider alternative sources such as due to her MS or GI in origin Pt followed with Dr. Uriel Knutson in the past who had referred her for cardiac cath in 2016, she plans to fup with him on discharge. Recc outpatient fup and if no other explaination and if symptoms continue or worsen would consider additional cardiac work up at that time. No further inpatient cardiac work up is needed at this time. Pt would be acceptable for discharge from a cardiac standpoint. Please call with any additional questions.
[2019-05-11] MEDS ORDERED: POLYETHYLENE GLYCOL 3350 119 GM BTL PO ONE (16:56)
[2019-05-11] MEDS: ACETAMINOPHEN 1000 MG/100 ML VIAL (NON FORMULARY) IVPB PRN (21:51)
[2019-05-11] MEDS: ATORVASTATIN CA 40 MG TABLET (FP) PO SCH (21:51)
[2019-05-11] MEDS: DOCUSATE SODIUM 100 MG CAPSULE (FP) PO SCH (21:51)
[2019-05-12] MEDS: DEXAMETHASONE SOD PHOSPHATE 4 MG/1 ML VIAL IVPB SCH ×5 (03:30→21:16)
[2019-05-12] MEDS: DOCUSATE SODIUM 100 MG CAPSULE (FP) PO SCH ×3 (06:16→21:16)
--- NOTE | 2019-05-12 09:10 | PN ---
Progress Note, Physician - Current Medication List Current Medications: Active Medications Acetaminophen (Ofirmev Injection -) 1,000 mg IVPB Q6H PRN PRN Reason: PAIN OR FEVER Last Admin: 05/11/19 21:51 Dose: 1,000 mg Aspirin (Asa -) 81 mg PO DAILY [facility] Last Admin: 05/11/19 12:46 Dose: 81 mg Atorvastatin Calcium (Lipitor -) 40 mg PO HS [facility] Last Admin: 05/11/19 21:51 Dose: 40 mg Dexamethasone Sodium Phosphate (Decadron Injection -) 4 mg IVPB Q6H-IV [facility] Last Admin: 05/12/19 03:30 Dose: 4 mg Docusate Sodium (Colace -) 100 mg PO TID [facility] Last Admin: 05/12/19 06:16 Dose: 100 mg Enoxaparin Sodium (Lovenox -) 40 mg SQ DAILY [facility] Last Admin: 05/11/19 12:46 Dose: 40 mg Pantoprazole Sodium (Protonix -) 40 mg PO DAILY [facility] Last Admin: 05/11/19 12:46 Dose: 40 mg - Objective Vital Signs: Vital Signs Temperature 98.1 F 05/12/19 06:00 Pulse Rate 69 05/12/19 06:00 Respiratory Rate 20 05/12/19 06:00 Blood Pressure 136/73 05/12/19 06:00 O2 Sat by Pulse Oximetry (%) 98 05/11/19 22:00 Labs: CBC, BMP 05/11/19 07:15 05/11/19 07:15 INR, PTT INR 0.94 (0.83-1.09) 05/08/19 17:30 Assessment/Plan - Problems (1) Chest pain Assessment/Plan: s/p echo and stress test left ventricle systolic function normal cardiology on board has a cardiac cath done 2 yrs ago was normal Code(s): R07.9 - CHEST PAIN, UNSPECIFIED Qualifiers: Chest pain type: unspecified Qualified Code(s): R07.9 - Chest pain, unspecified (2) Constipation Assessment/Plan: dulcolox and miralax (3) Multiple sclerosis Assessment/Plan: iv decadron per neurology--Follow up MRI pending Code(s): G35 - MULTIPLE SCLEROSIS
[2019-05-12] MEDS ORDERED: BISACODYL 5 MG TABLET.DR (FP) PO ONE (09:15)
[2019-05-12] MEDS ORDERED: PT OWN MED DRAWER 7, Y5N ONE (10:07)
[2019-05-12] MEDS: ASPIRIN 81 MG CHEWABLE TABLETS PO SCH (11:38)
[2019-05-12] MEDS: ENOXAPARIN NA (PORCINE) 40 MG/0.4 ML DISP.SYRIN SQ SCH (11:39)
[2019-05-12] MEDS: PANTOPRAZOLE 40 MG TABLET (FP) PO SCH (11:39)
[2019-05-12] MEDS: POLYETHYLENE GLYCOL 3350 119 GM BTL PO SCH ×2 (11:39→21:17)
[2019-05-12] MEDS: ACETAMINOPHEN 1000 MG/100 ML VIAL (NON FORMULARY) IVPB PRN (14:18)
[2019-05-12] MEDS: ATORVASTATIN CA 40 MG TABLET (FP) PO SCH (21:16)
[2019-05-13] MEDS: DEXAMETHASONE SOD PHOSPHATE 4 MG/1 ML VIAL IVPB SCH ×2 (03:24→10:15)
[2019-05-13] MEDS: DOCUSATE SODIUM 100 MG CAPSULE (FP) PO SCH ×2 (06:33→13:09)
[2019-05-13] MEDS ORDERED: PT OWN MED DRAWER 7, Y5N ONE (10:11)
[2019-05-13] MEDS: ENOXAPARIN NA (PORCINE) 40 MG/0.4 ML DISP.SYRIN SQ SCH (10:15)
[2019-05-13] MEDS: PANTOPRAZOLE 40 MG TABLET (FP) PO SCH (10:15)
[2019-05-13] MEDS: ASPIRIN 81 MG CHEWABLE TABLETS PO SCH (10:15)
--- NOTE | 2019-05-13 10:54 | DS ---
Physical Examination Vital Signs: Vital Signs Temperature 97.9 F 05/13/19 05:46 Pulse Rate 70 05/13/19 05:46 Respiratory Rate 18 05/13/19 05:46 Blood Pressure 150/91 05/13/19 05:46 O2 Sat by Pulse Oximetry (%) 98 05/13/19 01:00 Cardiovascular: Yes: Regular Rate and Rhythm Respiratory: Yes: Regular, CTA Bilaterally Gastrointestinal: Yes: Normal Bowel Sounds, Soft Neurological: Yes: Alert, Oriented, Unsteady Gait (improving--ambulating wit a cane) Labs: CBC, BMP 05/11/19 07:15 05/11/19 07:15 Discharge Summary Reason For Visit: CHEST PAIN Current Active Problems Chest pain (Acute) Hyperlipidemia (Acute) Multiple sclerosis (Acute) Condition: Improved - Instructions Disposition: VNS/HOME HEALTH CARE - Home Medications Comprehensive Discharge Medication List: Ambulatory Orders Aspirin [ASA -] 81 mg PO DAILY tab.chew 05/13/19 Atorvastatin Ca [Lipitor] 40 mg PO HS #30 tablet 05/13/19 Dexamethasone [Decadron -] 4 mg PO QID #30 tablet 05/13/19 Docusate Sodium [Colace -] 100 mg PO TID capsule 05/13/19 Pantoprazole Sodium [Protonix -] 40 mg PO DAILY #30 tablet.ec 05/13/19 Polyethylene Glycol 3350 [Miralax 119 gm Btl -] 17 gm PO BID bottle 05/13/19
[2019-05-13] MEDS: POLYETHYLENE GLYCOL 3350 119 GM BTL PO SCH (11:15)
[2019-05-13] MEDS ORDERED: DEXAMETHASONE 4 MG TABLET (FP) PO SCH (14:00)
[2019-05-13] MEDS ORDERED: ACETAMINOPHEN 325 MG TABLET (FP) PO PRN (15:12)
[2019-05-13 15:38] VITALS: BP 130/70; PULSE 72; TEMP 98.2
== END 2019-05-13 18:55 | disposition home health service (06) | DRG 43 ==
LOC: JER 16:14 → JERBED 22:50 → OBSVTOIN 22:50 → J4W 05-09 15:20
PROVIDERS: ADMIT Internal Medicine; ATTEND Family Medicine
DX: G35 Multiple sclerosis (principal); R07.9 Chest pain, unspecified; E66.9 Obesity, unspecified; R20.2 Paresthesia of skin; Z68.33 Body mass index [BMI] 33.0-33.9, adult; E78.5 Hyperlipidemia, unspecified; K59.00 Constipation, unspecified
CPT/HCPCS: 36415; 70450-TC; 71046-TC-FY; 72156-TC; 78452-TC; 80048; 80053; 80061; 81003; 82550; 83036; 83721; 83735; 84100; 84443; 84484; 84703; 85025; 85027; 85610; 87086; 93005; 93010; 93017; 93306-TC; 97116-GP; 97161-GP; 99284-25; A9502; A9579; J0131; J2785

== ENCOUNTER 2020-05-25 16:59 | Inpatient (IN) | payer OTHER ==
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
[2020-05-25] MEDS ORDERED: methylPREDNISolone NA SUCC 125 MG/2 ML VIAL IVPB ONE (18:44)
--- NOTE | 2020-05-25 18:44 | PDOC ---
Documentation entered by Domenico Melton SCRIBE, acting as scribe for Kane Clark MD. Kane Clark MD: This documentation has been prepared by the Linh cutler Xhesika, SCRIBE, under my direction and personally reviewed by me in its entirety. I confirm that the documentation accurately reflects all work, treatment, procedures, and medical decision making performed by me. Attending Attestation - Resident Resident Name: Erick Hebert - ED Attending Attestation I have performed the following: I have examined & evaluated the patient, The case was reviewed & discussed with the resident, I agree w/resident's findings & plan, Exceptions are as noted - HPI HPI: 05/25/20 18:14 The patient is a 49 year old female, with a significant PMH of MS (diagnosed 2011), Anemia, multiple sclerosis, and fibromialgia who presents to the emergency department with weakness, difficulty ambulating and decreased sensation x 2days. Pt states she is unable to lift her legs, and lift or hold things with her hands. Pt states her symptoms are similar to her previous MS exacerbation. Pt reports 3 days of constipation. The patient denies, shortness of breath, headache and dizziness. Denies fever, nausea, vomiting, diarrhea. Denies dysuria, frequency, urgency and hematuria. Allergies: NKDA Neurologist: Tanvir Weiner - Physicial Exam PE: 05/25/20 18:44 See resident exam - Medical Decision Making 05/25/20 18:44 49 F with likely MS flare. - Labs - Neuro c/s - Admit Discharge - Discharge Information Problems reviewed: Yes Clinical Impression/Diagnosis: Weakness, Multiple sclerosis, Arm weakness - Follow up/Referral - Patient Discharge Instructions - Post Discharge Activity
[2020-05-25] MEDS ORDERED: methylPREDNISolone NA SUCC 125 MG/2 ML VIAL ONE (19:24)
[2020-05-25 19:53] LABS: BILIRUBIN,TOTAL 0.4 mg/dL (0.2-1); BLOOD UREA NITROGEN 12.5 mg/dL (7-18); CALCIUM 9.2 mg/dL (8.5-10.1); CREATININE 0.9 mg/dL (0.55-1.3); POTASSIUM 4.2 mmol/L (3.5-5.1); TOT PROT 7.5 g/dl (6.4-8.2)
[2020-05-25 20:01] LABS: BASO % 0.5 % (0-2.0); EOS % 2.1 % (0-4.5); HEMATOCRIT 40.3 % (32.4-45.2); HEMOGLOBIN 13.7 GM/dL (10.7-15.3); LYMPH % 31.4 % (8-40); MCH 29.8 pg (25.7-33.7); MCHC 33.9 g/dl (32.0-36.0); MEAN CELL VOLUME 87.9 fl (80-96); MEAN PLT VOLUME 9.8 fl (7.5-11.1); MONO % 7.5 % (3.8-10.2); NEUT % 58.5 % (42.8-82.8); PLATELET COUNT 257 K/MM3 (134-434); RBC 4.59 M/mm3 (3.60-5.2); RDW 12.6 % (11.6-15.6); WHITE BLOOD COUNT 6.8 K/mm3 (4.0-10.0)
--- NOTE | 2020-05-25 21:22 | PN ---
Teaching Attending Note Name of Resident: Suresh Farfan ATTENDING PHYSICIAN STATEMENT I saw and evaluated the patient. I reviewed the resident's note and discussed the case with the resident. I agree with the resident's findings and plan as documented. SUBJECTIVE: Patient is a 49 year old woman with a PMH of Multiple sclerosis (diagnosed 2011) , Dry eyes, Anemia and Fibromialgia who presents with difficulty ambulating, weakness and decreased sensation in her legs (R>L) for 2 days. Patient has been dealing with baseline MS symptoms for the last year, has numbness and tingling in her arms and legs but is mild and goes away. Yesterday was having trouble holding a cup in her hand, unable to grasp. Also having decreased sensation to her legs, R>L. Having headache with electric sensation/burning from head down spine to legs as well as lightheadedness, tiredness and feeling chilly without fever. Denies recent injury or fall with head/back injury. Denies vision changes, chest pain, palpitations, SOB, cough, fever, abdominal pain, dizziness, urinary symptoms. Has had constipation for 3 days, last BM 3 days ago. Lives with son. Last adm itted at [facility] last year for an MS flare. Sees Dr. Leon for Neurologic care. Her last MRI was on 01/29/2020 and was reported as no significant interval change compared to the MRI from 03/08/2019. Patient denies palpitations, nausea, vomiting, diarrhea, melena, hematochezia or hematuria. Denies alcohol, tobacco or illicit drug use. No sick contacts or recent travels. Family history of breast cancer in mother and alcohol abuse in father. OBJECTIVE: Alert Vital Signs Period Temp Pulse Resp BP Sys/Shankar Pulse Ox Last 24 Hr 98 F 84 18 143/77 100 HEENT: No Jaundice, eye redness or discharge, PERRLA, EOMI. Normocephalic, atraumatic. External ears are normal and hearing is grossly intact. No nasal discharge. Neck: Supple, nontender. No palpable adenopathy or thyromegaly. No JVD Chest: Good effort. Clear to auscultation and percussion. Heart: Regular. No S3, rub or murmur Abdomen: Not distended, soft, nontender and no HSM. No rebound or guarding. Normal bowel sounds. Ext: Peripheral pulses intact. No leg edema. Skin: Warm and dry. No petechiae, rash or ecchymosis. Neuro: Alert. Oriented x3. Numbness and weakness in both legs; pain with passive movement in both legs. CN 2-12 grossly intact. Psych: Appropriate mood and affect. Good insight. Home Medications Medication Instructions Recorded Aspirin [ASA -] 81 mg PO DAILY tab.chew 05/13/19 Atorvastatin Ca [Lipitor] 40 mg PO HS #30 tablet 05/13/19 Dexamethasone [Decadron -] 4 mg PO QID #30 tablet 05/13/19 Docusate Sodium [Colace -] 100 mg PO TID capsule 05/13/19 Pantoprazole Sodium [Protonix -] 40 mg PO DAILY #30 tablet.ec 05/13/19 Polyethylene Glycol 3350 [Miralax 17 gm PO BID bottle 05/13/19 119 gm Btl -] Abnormal Lab Results 05/25/20 18:48 Chloride 109 H Random Glucose 112 H Current Medications Generic Name Dose Route Start Last Admin Trade Name Travis PRN Reason Stop Dose Admin Docusate Sodium 100 mg 05/26/20 10:00 Colace - PO BID LEONEL Enoxaparin Sodium 40 mg 05/26/20 10:00 Lovenox - SQ DAILY LEONEL Methylprednisolone Sodium Succinate 250 mg 05/26/20 06:00 Solu-Medrol - IVPB Q12H LEONEL Polyethylene Glycol 17 gm 05/26/20 06:00 Miralax (For Daily Use) - PO TID LEONEL ASSESSMENT AND PLAN: 1. Multiple sclerosis Flare up - No acute abnormality on CXR. EKG shows NSR at 88/minute, LVH, LAD and QTc [address]-T wave changes. Not significantly changed compared to prior EKG. Initial troponin is negative. Viral testing for COVID-19 ordered and patient placed on airborne, droplet and contact isolation. Will get urinalysis, give Miralax for constipation, continue Solumedrol 250 mg IV q 6 hours; Pepcid 40 mg PO qd, do neurochecks and implement fall/aspiration precautions. Monitor blood glucose q shift and implement insulin sliding scale. Consult PT/Neurology and discuss whether Baclofen side effects may explain some of her symptoms. Will continue comprehensive care for all of patients comorbid conditions. 2. Obesity Counseled on the risks associated with obesity. Will provide patient all the necessary assistance, counseling and positive reinforcement to facilitate weight loss. Consult equipment validation engineer. 3. DVT prophylaxis - Lovenox 40 mg SQ q 24 hours. 4. Advance directives - Full code
[2020-05-25] MEDS ORDERED: POLYETHYLENE GLYCOL 3350 119 GM BTL PO SCH (23:00)
[2020-05-25] MEDS ORDERED: methylPREDNISolone NA SUCC 1000 MG/8 ML VIAL IVPB SCH (23:30)
--- NOTE | 2020-05-26 00:08 | HP ---
CHIEF COMPLAINT: 2 days of leg heaviness and weakness with headache and electric shocks down her spine and tingling in her hands and feet PCP: Dr. Muhammad HISTORY OF PRESENT ILLNESS: 49 year old female patient with past medical history that includes Multiple Sclerosis diagnosed [address] Leon, anemia, dry eyes, and fibromyalgia, who presented to the emergency room with 2 days of leg heaviness and weakness with headache and electric shocks down her spine and tingling in her hands and feet. The patient reports a band-like headache that wraps around her head. She also has a feeling of significant muscle tightness in her legs and feet bilaterally that hurts. Passive movement of her legs elicits so much pain that the patient jumps up in bed. Her legs are so weak that she is unable to stand or move her legs that much, but she report having no problems with her balance. She has a cane to help her ambulate as well. She also feels mild lightheadedness and is very tired. She says that she can know when her MS will get worse based on how fatigued she feels. Recently she was able to sleep 14 hours but still feel fatigued upon awakening, so she knew her MS was getting worse. The patient also has constipation where she goes to the bathroom once or twice a week. She has been constipated for over a year. She takes both Miralax and Docusate every day, but is afraid of getting addicted to Docusate, so she sometimes only takes the Miralax. The patient reports being compliant with all of her medications. She takes Glatiramir 20mg/mL SQ daily for her MS, and was recently in the past year prescribed Baclofen, which is now a dose of 80mg Baclofen, which is split 40mg in the morning and 40 mg in the afternoon. ER course was notable for: (1) Solu-Medrol 250mg given (2) CXR, ECG (3) Recent Travel: Denies PAST MEDICAL HISTORY: Multiple Sclerosis diagnosed [address] Leon, anemia, dry eyes, and fibromyalgia PAST SURGICAL HISTORY: Right knee procedure for her knee meniscus, Right shoulder procedure, 2 C- Sections Social History: Smoking: Denies Alcohol: Denies Drugs: Denies Allergies No Known Allergies Allergy (Verified 05/25/20 17:13) HOME MEDICATIONS: Home Medications Medication Instructions Recorded Aspirin [ASA -] 81 mg PO DAILY tab.chew 05/13/19 Atorvastatin Ca [Lipitor] 40 mg PO HS #30 tablet 05/13/19 Dexamethasone [Decadron -] 4 mg PO QID #30 tablet 05/13/19 Docusate Sodium [Colace -] 100 mg PO TID capsule 05/13/19 Pantoprazole Sodium [Protonix -] 40 mg PO DAILY #30 tablet.ec 05/13/19 Polyethylene Glycol 3350 [Miralax 17 gm PO BID bottle 05/13/19 119 gm Btl -] REVIEW OF SYSTEMS CONSTITUTIONAL: chills, fatigued and reports can sleep 14 hours and still feel fatigued Absent: no diaphoresis HEENT: headache that feels like band is wrapped around her head Absent: no visual changes RESPIRATORY: difficulty breathing she attributes to 'MS tamar", mild chest congestion Absent: GASTROINTESTINAL: constipation going 1x or 2x per week for past year Absent: no abdominal pain, no nausea, no vomiting, no diarrhea GENITOURINARY: bladder incontinence where she gets urgency and if she doesn't go immediately then urine leaks out Absent: MUSCULOSKELETAL: leg and foot pain bilaterally, feeling of muscle twisting in her legs and feet bilaterally Absent: NEUROLOGIC: mild lightheadedness Absent: no saddle anesthesia SKIN: crawling sensation on legs bilaterally Absent: PHYSICAL EXAMINATION Vital Signs - 24 hr 05/25/20 17:09 Temperature 98 F Pulse Rate 84 Respiratory 18 Rate Blood Pressure 143/77 O2 Sat by Pulse 100 Oximetry (%) GENERAL: Awake, alert, and fully oriented, in no acute distress. HEAD: Normal with no signs of trauma. EYES: Pupils equal, round and reactive to light, extraocular movements intact. No lid lag. EARS, NOSE, THROAT: Ears normal, nares patent, oropharynx clear without exudates. Moist mucous membranes. NECK: Normal range of motion, supple without lymphadenopathy, JVD, or masses. LUNGS: Breath sounds equal, clear to auscultation bilaterally. No wheezes, and no crackles. No accessory muscle use. HEART: Regular rate and rhythm, normal S1 and S2 without murmur, rub or gallop. ABDOMEN: Hard, nontender, high BMI, normoactive bowel sounds, guarding, no rebound, no masses. Surgical scars. MUSCULOSKELETAL: Normal range of motion at all joints. No bony deformities or tenderness. UPPER EXTREMITIES: 2+ pulses, warm, well-perfused. No cyanosis. No clubbing. No peripheral edema. LOWER EXTREMITIES: 2+ pulses, warm, well-perfused. No calf tenderness. No peripheral edema. Muscle tone very tight in legs, thighs, and feet bilaterally. Pain to passive movement of legs and feet bilaterally with patient jumping up due to the pain. NEUROLOGICAL: Cranial nerves II-XII intact. Normal speech. Gait unable to be evaluated due to bilateral LE weakness. Muscle Strength +2/5 in LEs bilaterally. +4/5 in UEs bilaterally. Partial numbness in UEs (from the knees down) and LEs (from the shoulders down) bilaterally with left extremity numbness > right extremity numbness. DTR's +1/4 in UE's bilaterally and +0/4 in LE's bilaterally. Reyes's test negative bilaterally. Babinski sign unable to be elicited bilaterally. Rmvjdk-Cdlf-Wxciuf test negative. No Dysdiadochokinesia. PSYCHIATRIC: Cooperative. Good eye contact. Appropriate mood and affect. SKIN: Warm, dry, normal turgor, no rashes or lesions noted, normal capillary refill. Laboratory Results - last 24 hr 05/25/20 05/25/20 18:48 18:50 WBC 6.8 RBC 4.59 Hgb 13.7 Hct 40.3 MCV 87.9 MCH 29.8 MCHC 33.9 RDW 12.6 Plt Count 257 MPV 9.8 Absolute Neuts (auto) 4.0 Neutrophils % 58.5 Lymphocytes % 31.4 Monocytes % 7.5 Eosinophils % 2.1 D Basophils % 0.5 Nucleated RBC % 0 Sodium 144 Potassium 4.2 Chloride 109 H Carbon Dioxide 27 Anion Gap 8 BUN 12.5 Creatinine 0.9 Est GFR (CKD-EPI)AfAm 87.02 Est GFR (CKD-EPI)NonAf 75.08 Random Glucose 112 H Calcium 9.2 Total Bilirubin 0.4 AST 24 ALT 39 Alkaline Phosphatase 89 Total Protein 7.5 Albumin 4.0 ASSESSMENT/PLAN: 49 year old female patient with past medical history that includes Multiple Sclerosis diagnosed [address] Leon, anemia, dry eyes, and fibromyalgia, who presented to the emergency room with 2 days of leg heaviness and weakness with headache and electric shocks down her spine and tingling in her hands and feet. 1. MS Flare with significant leg weakness - Neurology consulted - 250mg Solu-Medrol given in ED, so patient placed on 250mg [id number] Solu-Medrol until Neurology sees the patient - Fall Risk Precautions - Physical Therapy consult - Neurochecks 2. Lightheadedness - May be secondary to Baclofen side-effect. 2. Leg pain secondary to significant muscle tightness - Muscle relaxant 3. Tension Headache - Tylenol - Muscle relaxant 4. Constipation - Miralax TID - May be secondary to Baclofen side-effect 5. 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 Regular Diet. DVT PPx - Lovenox SQ Family Medical History Family History: As Documented Family Hx Cancer: Mother (Breast Cancer) Family Hx Coronary Artery Disease: Father Visit type - Emergency Visit Emergency Visit: Yes ED Registration Date: 05/25/20 Care time: The patient presented to the Emergency Department on the above date and was hospitalized for further evaluation of their emergent condition. - New Patient This patient is new to me today: Yes Date on this admission: 05/26/20 - Critical Care Critical Care patient: No ATTENDING PHYSICIAN STATEMENT I saw and evaluated the patient. I reviewed the resident's note and discussed the case with the resident. I agree with the resident's findings and plan as documented. SUBJECTIVE: OBJECTIVE: ASSESSMENT AND PLAN:
[2020-05-26] MEDS: ACETAMINOPHEN 325 MG TABLET (FP) PO PRN ×4 (01:09→21:04)
[2020-05-26 02:45] LABS: URINE APPEARANCE CLEAR; URINE BILIRUBIN NEGATIVE (NEGATIVE); URINE COLOR YELLOW; URINE GLUCOSE (UA) 3+ (NEGATIVE); URINE KETONE NEGATIVE (NEGATIVE); URINE LEUK ESTERASE NEGATIVE (NEGATIVE); URINE NITRITE NEGATIVE (NEGATIVE); URINE PROTEIN NEGATIVE (NEGATIVE)
[2020-05-26 03:36] VITALS: BMI 34.2
[2020-05-26] MEDS: POLYETHYLENE GLYCOL 3350 119 GM BTL PO SCH ×3 (05:31→21:05)
[2020-05-26] MEDS: methylPREDNISolone NA SUCC 125 MG/2 ML VIAL IVPB SCH ×2 (05:31→18:24)
[2020-05-26] MEDS: PANTOPRAZOLE 40 MG TABLET PO SCH (06:21)
[2020-05-26] MEDS: INSULIN SLIDING SCALE (NOVOLOG) 1 VIAL SQ SCH ×4 (06:44→21:05)
[2020-05-26 07:04] LABS: HEMATOCRIT 40.6 % (32.4-45.2); HEMOGLOBIN 13.5 GM/dL (10.7-15.3); MCHC 33.3 g/dl (32.0-36.0); MEAN PLT VOLUME 9.5 fl (7.5-11.1); PLATELET COUNT 266 K/MM3 (134-434); RBC 4.67 M/mm3 (3.60-5.2); RDW 12.5 % (11.6-15.6); WHITE BLOOD COUNT 7.6 K/mm3 (4.0-10.0)
[2020-05-26 07:56] LABS: BLOOD UREA NITROGEN 12.3 mg/dL (7-18); CALCIUM 8.8 mg/dL (8.5-10.1); CREATININE 0.9 mg/dL (0.55-1.3); MAGNESIUM 1.8 mg/dL (1.8-2.4); PHOSPHOROUS 1.9 mg/dL (2.5-4.9); POTASSIUM 4.1 mmol/L (3.5-5.1)
[2020-05-26] MEDS: DOCUSATE SODIUM 100 MG CAPSULE (FP) PO SCH ×2 (09:05→21:05)
[2020-05-26] MEDS: ENOXAPARIN NA (PORCINE) 40 MG/0.4 ML DISP.SYRIN SQ SCH (09:06)
--- NOTE | 2020-05-26 11:57 | PN ---
Progress Note, Physician - Current Medication List Current Medications: Active Medications Acetaminophen (Tylenol -) 650 mg PO Q6H PRN PRN Reason: Fever Or Pain Last Admin: 05/26/20 09:05 Dose: 650 mg Documented by: Docusate Sodium (Colace -) 100 mg PO BID [facility] Last Admin: 05/26/20 09:05 Dose: 100 mg Documented by: Enoxaparin Sodium (Lovenox -) 40 mg SQ DAILY [facility] Last Admin: 05/26/20 09:06 Dose: 40 mg Documented by: Insulin Aspart (Novolog Vial Sliding Scale -) 1 vial SQ ACHS [facility]; Protocol Last Admin: 05/26/20 11:29 Dose: 2 unit Documented by: Methylprednisolone Sodium Succinate (Solu-Medrol -) 250 mg IVPB Q12H [facility] Last Admin: 05/26/20 05:31 Dose: 250 mg Documented by: Pantoprazole Sodium (Protonix -) 40 mg PO ACBK [facility] Last Admin: 05/26/20 06:21 Dose: 40 mg Documented by: Polyethylene Glycol (Miralax (For Daily Use) -) 17 gm PO TID [facility] Last Admin: 05/26/20 05:31 Dose: 17 gm Documented by: - Objective Vital Signs: Vital Signs Temperature 97.9 F 05/26/20 10:00 Pulse Rate 92 H 05/26/20 10:00 Respiratory Rate 19 05/26/20 10:00 Blood Pressure 147/84 05/26/20 10:00 O2 Sat by Pulse Oximetry (%) 95 05/26/20 10:00 Cardiovascular: Yes: S1, S2 Respiratory: Yes: Regular, CTA Bilaterally Gastrointestinal: Yes: Normal Bowel Sounds, Soft Edema: No Labs: CBC, BMP 05/26/20 06:24 05/26/20 06:24 Problem List - Problems (1) Multiple sclerosis Assessment/Plan: - Neurology consulted - 250mg Solu-Medrol given in ED, so patient placed on 250mg [id number] Solu-Medrol until Neurology sees the patient - Fall Risk Precautions - Physical Therapy consult - Neurochecks Code(s): G35 - MULTIPLE SCLEROSIS (2) Weakness Assessment/Plan: physical therapry Code(s): R53.1 - WEAKNESS (3) Hyperlipidemia Code(s): E78.5 - HYPERLIPIDEMIA, UNSPECIFIED
--- NOTE | 2020-05-26 12:36 | EKG ---
Test Reason : Blood Pressure : / mmHG Vent. Rate : 088 BPM Atrial Rate : 088 BPM P-R Int : 182 ms QRS Dur : 116 ms QT Int : 376 ms P-R-T Axes : 044 -38 057 degrees QTc Int : 454 ms NORMAL SINUS RHYTHM LEFT AXIS DEVIATION LEFT VENTRICULAR HYPERTROPHY WITH QRS WIDENING CANNOT RULE OUT SEPTAL INFARCT (CITED ON OR BEFORE 20-MAY-2014) ABNORMAL ECG WHEN COMPARED WITH ECG OF 08-MAY-2019 16:16, NO SIGNIFICANT CHANGE WAS FOUND Confirmed by MATEO BOLES MD ([id number]) on 05/26/2020 12:36:06 PM Referred By: Confirmed By:MATEO BOLES MD
[2020-05-26] MEDS ORDERED: MELATONIN 5 MG TABLETS PO ONE (20:16)
--- NOTE | 2020-05-26 20:40 | CON.NEURO ---
Consult Consult Specialty:: [facility] Referred by:: ER Reason for Consultation:: MS - History of Present Illness History of Present Illness: 49 year sold woman with PMH Anxiety CAd OA MS on Tecfedera Came in with incaresing weakness and difficulty with balalnce and equilbiurm Solumderol given No recent tarvel urinary urgency with no incontinence - History Source History Provided By: Patient Limitations to Obtaining History: No Limitations - Past Medical History ...LMP: 03/30/20 ...: No - Alcohol/Substance Use Hx Alcohol Use: No - Smoking History Smoking history: Never smoked Have you smoked in the past 12 months: No Home Medications - Allergies Allergies/Adverse Reactions: Allergies Allergy/AdvReac Type Severity Reaction Status Date / Time No Known Allergies Allergy Verified 05/25/20 17:13 - Home Medications Home Medications: Ambulatory Orders Aspirin [ASA -] 81 mg PO DAILY tab.chew 05/13/19 Atorvastatin Ca [Lipitor] 40 mg PO HS #30 tablet 05/13/19 Dexamethasone [Decadron -] 4 mg PO QID #30 tablet 05/13/19 Docusate Sodium [Colace -] 100 mg PO TID capsule 05/13/19 Pantoprazole Sodium [Protonix -] 40 mg PO DAILY #30 tablet.ec 05/13/19 Polyethylene Glycol 3350 [Miralax 119 gm Btl -] 17 gm PO BID bottle 05/13/19 Family Medical History Family History: Unremarkable Family Hx Cancer: Mother (Breast Cancer) Family Hx Coronary Artery Disease: Father Review of Systems - Review of Systems Neurological: reports: Headache, Incoordination, Numbness, Parasthesia, Pre- Existing Deficit, Tremors, Unsteady Gait Physical Exam-Neuro Vital Signs: Vital Signs Temperature 98 F 05/26/20 18:00 Pulse Rate 95 H 05/26/20 18:00 Respiratory Rate 18 05/26/20 18:00 Blood Pressure 148/78 05/26/20 18:00 O2 Sat by Pulse Oximetry (%) 96 05/26/20 18:00 Constitutional: Yes: Well Nourished Neck: Yes: WNL Cardiovascular: Yes: WNL Labs: CBC, BMP 05/26/20 06:24 05/26/20 06:24 - Neuro Exam Level Of Consciousness: Yes: Oriented to Person, Oriented to Place, Oriented to Time Eyes: Yes: PERRLA Speech: WNL Dominant Hand: Right Cranial Nerves II-XII Intact: Yes Gag: Present DTR's: 1+ Left Bicep, 1+ Right Bicep, 1+ Left Brachioradialis, 1+ Right Brachioradialis Response to light touch: Normal Response to pain prick: Normal Response to temperature: Abnormal Response to vibration: Abnormal Movement Disorders: Involuntary Movements, Spasticity Motor Strength: 3/5: Left Arm, Right Arm, Left Leg, Right Leg Gait: Deferred Imaging - Results MRI: Image Reviewed Problem List - Problems (1) Multiple sclerosis Assessment/Plan: ?? MS exacerbation 1. Fall precautions 2. Tecfedera 120 mg po q12 3. Solumedrol 250 q6 hours 4. MRI brain with and without [place] 5. BGM q shift 6. PT Tanvir Leon MD Neurology Code(s): G35 - MULTIPLE SCLEROSIS
[2020-05-27] MEDS: POLYETHYLENE GLYCOL 3350 119 GM BTL PO SCH ×3 (06:00→21:38)
[2020-05-27] MEDS: methylPREDNISolone NA SUCC 125 MG/2 ML VIAL IVPB SCH ×2 (06:00→17:24)
[2020-05-27] MEDS: INSULIN SLIDING SCALE (NOVOLOG) 1 VIAL SQ SCH ×3 (06:02→16:37)
[2020-05-27] MEDS: PANTOPRAZOLE 40 MG TABLET PO SCH (06:09)
[2020-05-27] MEDS: DOCUSATE SODIUM 100 MG CAPSULE (FP) PO SCH ×2 (09:22→21:38)
[2020-05-27] MEDS: ENOXAPARIN NA (PORCINE) 40 MG/0.4 ML DISP.SYRIN SQ SCH (09:23)
[2020-05-27] MEDS: ACETAMINOPHEN 325 MG TABLET (FP) PO PRN ×2 (09:23→20:04)
--- NOTE | 2020-05-27 11:30 | PN ---
Progress Note, Physician Chief Complaint: MS exacerbation History of Present Illness: NAD Feels better, less weak with steroids MRI brain without contrast reviewed Seen by Neurology - Current Medication List Current Medications: Active Medications Acetaminophen (Tylenol -) 650 mg PO Q6H PRN PRN Reason: Fever Or Pain Last Admin: 05/27/20 09:23 Dose: 650 mg Documented by: Docusate Sodium (Colace -) 100 mg PO BID [facility] Last Admin: 05/27/20 09:22 Dose: 100 mg Documented by: Enoxaparin Sodium (Lovenox -) 40 mg SQ DAILY [facility] Last Admin: 05/27/20 09:23 Dose: 40 mg Documented by: Insulin Aspart (Novolog Vial Sliding Scale -) 1 vial SQ ACHS [facility]; Protocol Last Admin: 05/27/20 06:02 Dose: Not Given Documented by: Methylprednisolone Sodium Succinate (Solu-Medrol -) 250 mg IVPB Q12H [facility] Last Admin: 05/27/20 06:00 Dose: 250 mg Documented by: Pantoprazole Sodium (Protonix -) 40 mg PO ACBK [facility] Last Admin: 05/27/20 06:09 Dose: 40 mg Documented by: Polyethylene Glycol (Miralax (For Daily Use) -) 17 gm PO TID [facility] Last Admin: 05/27/20 06:00 Dose: 17 gm Documented by: - Objective Vital Signs: Vital Signs Temperature 97.4 F L 05/27/20 09:00 Pulse Rate 81 05/27/20 09:00 Respiratory Rate 18 05/27/20 09:00 Blood Pressure 145/62 05/27/20 09:00 O2 Sat by Pulse Oximetry (%) 100 05/27/20 09:00 Constitutional: Yes: Well Nourished, No Distress, Calm Cardiovascular: Yes: Regular Rate and Rhythm Respiratory: Yes: Regular, CTA Bilaterally Gastrointestinal: Yes: Normal Bowel Sounds, Soft Genitourinary: Yes: WNL Musculoskeletal: Yes: Muscle Weakness Extremities: Yes: WNL Edema: No Peripheral Pulses WNL: Yes Neurological: Yes: Alert, Oriented Psychiatric: Yes: Alert, Oriented Labs: CBC, BMP 05/26/20 06:24 05/26/20 06:24 Problem List - Problems (1) Multiple sclerosis Assessment/Plan: -Neurology consult -Stress steroids -MRI brain without contrast reviewed -PT Problems reviewed: Yes Code(s): G35 - MULTIPLE SCLEROSIS Assessment/Plan See problem list
[2020-05-27] MEDS ORDERED: INSULIN (NOVOLOG) ASPART 100 UNITS/ML 10ML VIAL ONE (12:02)
--- NOTE | 2020-05-27 20:22 | PN ---
Progress Note, Physician History of Present Illness: events noted Seen on [facility] floor Slightly better MRI no new lesion I am seeing stone MS cases with clinical relpase with no new lesion ?? flare up of old lesiosn On Steroids - Current Medication List Current Medications: Active Medications Acetaminophen (Tylenol -) 650 mg PO Q6H PRN PRN Reason: Fever Or Pain Last Admin: 05/27/20 20:04 Dose: 650 mg Documented by: Docusate Sodium (Colace -) 100 mg PO BID [facility] Last Admin: 05/27/20 09:22 Dose: 100 mg Documented by: Enoxaparin Sodium (Lovenox -) 40 mg SQ DAILY [facility] Last Admin: 05/27/20 09:23 Dose: 40 mg Documented by: Methylprednisolone Sodium Succinate (Solu-Medrol -) 250 mg IVPB Q12H [facility] Last Admin: 05/27/20 17:24 Dose: 250 mg Documented by: Pantoprazole Sodium (Protonix -) 40 mg PO ACBK [facility] Last Admin: 05/27/20 06:09 Dose: 40 mg Documented by: Polyethylene Glycol (Miralax (For Daily Use) -) 17 gm PO TID [facility] Last Admin: 05/27/20 14:33 Dose: 17 gm Documented by: - Objective Vital Signs: Vital Signs Temperature 96.9 F L 05/27/20 16:30 Pulse Rate 76 05/27/20 16:30 Respiratory Rate 18 05/27/20 16:30 Blood Pressure 174/98 H 05/27/20 16:30 O2 Sat by Pulse Oximetry (%) 98 05/27/20 16:30 Constitutional: Yes: Well Nourished Eyes: Yes: WNL Neurological: Yes: Alert, Oriented, Babinski negative, Cran Nerves II-XII Intact Labs: CBC, BMP 05/26/20 06:24 05/26/20 06:24 Problem List - Problems (1) Multiple sclerosis Assessment/Plan: MRI L Spsine Baclofen 20 mg po q12 Fall precautions PT DVT prophylaxis Tecfedera as out patient Change Solumedrol pulse to Prednisone 60 mg po qd GI prophylaxsi Code(s): G35 - MULTIPLE SCLEROSIS
[2020-05-27] MEDS: MELATONIN 5 MG TABLETS PO PRN (23:09)
[2020-05-28] MEDS: PANTOPRAZOLE 40 MG TABLET PO SCH (06:49)
[2020-05-28] MEDS: POLYETHYLENE GLYCOL 3350 119 GM BTL PO SCH ×3 (06:49→22:23)
[2020-05-28] MEDS: methylPREDNISolone NA SUCC 125 MG/2 ML VIAL IVPB SCH ×2 (06:49→17:57)
[2020-05-28 07:23] LABS: BASO % 0.1 % (0-2.0); HEMATOCRIT 39.3 % (32.4-45.2); LYMPH % 9.9 % (8-40); MCH 28.9 pg (25.7-33.7); MCHC 33.1 g/dl (32.0-36.0); MEAN CELL VOLUME 87.3 fl (80-96); MEAN PLT VOLUME 9.9 fl (7.5-11.1); MONO % 3.2 % (3.8-10.2); NEUT % 86.8 % (42.8-82.8); PLATELET COUNT 241 K/MM3 (134-434); RDW 12.7 % (11.6-15.6); WHITE BLOOD COUNT 14.2 K/mm3 (4.0-10.0)
[2020-05-28 07:47] LABS: ALBUMIN 3.3 g/dl (3.4-5.0); BILIRUBIN,TOTAL 0.2 mg/dL (0.2-1); BLOOD UREA NITROGEN 16.8 mg/dL (7-18); CALCIUM 8.8 mg/dL (8.5-10.1); CREATININE 0.7 mg/dL (0.55-1.3); POTASSIUM 4.1 mmol/L (3.5-5.1); TOT PROT 6.7 g/dl (6.4-8.2)
[2020-05-28] MEDS: ACETAMINOPHEN 325 MG TABLET (FP) PO PRN ×2 (08:49→22:24)
[2020-05-28] MEDS: DOCUSATE SODIUM 100 MG CAPSULE (FP) PO SCH ×2 (09:01→22:24)
[2020-05-28] MEDS: ENOXAPARIN NA (PORCINE) 40 MG/0.4 ML DISP.SYRIN SQ SCH (09:01)
--- NOTE | 2020-05-28 13:38 | PN ---
Progress Note, Physician Chief Complaint: EVENTS AND NOTES REVIEWED ASLEEP LABS REVIEWED - Current Medication List Current Medications: Active Medications Acetaminophen (Tylenol -) 650 mg PO Q6H PRN PRN Reason: Fever Or Pain Last Admin: 05/28/20 08:49 Dose: 650 mg Documented by: Docusate Sodium (Colace -) 100 mg PO BID [facility] Last Admin: 05/28/20 09:01 Dose: 100 mg Documented by: Enoxaparin Sodium (Lovenox -) 40 mg SQ DAILY [facility] Last Admin: 05/28/20 09:01 Dose: 40 mg Documented by: Melatonin (Melatonin) 5 mg PO HS PRN PRN Reason: INSOMNIA Last Admin: 05/27/20 23:09 Dose: 5 mg Documented by: Methylprednisolone Sodium Succinate (Solu-Medrol -) 250 mg IVPB Q12H [facility] Last Admin: 05/28/20 06:49 Dose: 250 mg Documented by: Pantoprazole Sodium (Protonix -) 40 mg PO ACBK [facility] Last Admin: 05/28/20 06:49 Dose: 40 mg Documented by: Polyethylene Glycol (Miralax (For Daily Use) -) 17 gm PO TID [facility] Last Admin: 05/28/20 06:49 Dose: 17 gm Documented by: - Objective Vital Signs: Vital Signs Temperature 98.4 F 05/28/20 10:38 Pulse Rate 62 05/28/20 10:38 Respiratory Rate 19 05/28/20 10:38 Blood Pressure 156/88 05/28/20 10:38 O2 Sat by Pulse Oximetry (%) 95 05/28/20 10:38 Constitutional: Yes: No Distress Cardiovascular: Yes: Regular Rate and Rhythm Respiratory: Yes: CTA Bilaterally Gastrointestinal: Yes: Soft Genitourinary: Yes: Incontinence Musculoskeletal: Yes: Muscle Weakness Neurological: Yes: Pre-Existing Deficit, Weakness Labs: CBC, BMP 05/28/20 06:24 05/28/20 06:24 Problem List - Problems (1) Arm weakness Code(s): R29.898 - OTH SYMPTOMS AND SIGNS INVOLVING THE MUSCULOSKELETAL SYSTEM (2) Multiple sclerosis Code(s): G35 - MULTIPLE SCLEROSIS (3) Weakness Code(s): R53.1 - WEAKNESS Assessment/Plan STEROIDS WILL TAPER SLOWLY DVT PROPHYLAXIS PT EVAL SNF PLACEMENT MONITOR LABS
[2020-05-28] MEDS: MELATONIN 5 MG TABLETS PO PRN (22:25)
--- NOTE | 2020-05-29 05:06 | FALL ---
Fall Exam - Event Witnessed fall: Yes Location of Fall: Patient Room Fall from: While ambulating - Pre-Fall Mental Status: Alert Current Medications: Current Medications Generic Name Dose Route Start Last Admin Trade Name Travis PRN Reason Stop Dose Admin Acetaminophen 650 mg 05/26/20 00:09 05/28/20 22:24 Tylenol - PO 650 mg Q6H PRN Administration Fever Or Pain Docusate Sodium 100 mg 05/26/20 10:00 05/28/20 22:24 Colace - PO 100 mg BID LEONEL Administration Enoxaparin Sodium 40 mg 05/26/20 10:00 05/28/20 09:01 Lovenox - SQ 40 mg DAILY LEONEL Administration Melatonin 5 mg 05/27/20 21:19 05/28/20 22:25 Melatonin PO 5 mg HS PRN Administration INSOMNIA Methylprednisolone Sodium Succinate 250 mg 05/26/20 06:00 05/28/20 17:57 Solu-Medrol - IVPB 250 mg Q12H LEONEL Administration Pantoprazole Sodium 40 mg 05/26/20 07:00 05/28/20 06:49 Protonix - PO 40 mg ACBK LEONEL Administration Polyethylene Glycol 17 gm 05/26/20 06:00 05/28/20 22:23 Miralax (For Daily Use) - PO 17 gm TID LEONEL Administration - Post-Fall Patient Outcome: Pain Only (right knee) Exam Findings: AAOx3, HEENT: Normocephalic non-Traumatic, Conjuctiva Clear, PERRL, +EOMIS, Ears Patent, Nares patent, Oropharynx: No erythema, Mucous Membranes Moist, Neck: Supple, Non-tender, Lungs: CTAB, Heart: RRR, S1, S2. Abdomen: Obese, Soft, Non-Tender, Hypoactive BS. Muscloskeletal: FROM of all extremities, TTP R- Knee, no Abrasions, no Swelling. +2 DTPs Treatment: Analgesia, Ice Pack Vital Signs: Vital Signs Temperature 98.4 F 05/29/20 04:41 Pulse Rate 58 L 05/29/20 04:41 Respiratory Rate 20 05/29/20 04:41 Blood Pressure 141/67 05/29/20 04:41 O2 Sat by Pulse Oximetry (%) 95 05/29/20 04:41 LOC Post-Fall: Unchanged Identify factors for HIGH RISK for Head Injury: Pt on anticoagulant
--- NOTE | 2020-05-29 05:17 | HOSP ---
Subjective - Review of Symptoms Events since last encounter: Hospitalist Encounter: Notified by the RN that the patient's R- knee "buckled" while ambulating back to her bed, with assistance by the RN and was lowered to the floor. Per the RN the patient did not fall or hit her head, was asked to assess. Arrived to bedside, patient is AAOx3, denies fall or head trauma, c/o of R- knee pain. Denies hitting her knees. Patient examined at bedside see EMR Plan: Fall Protocol #1 initiated Musculoskeletal: Yes: Joint Pain (right knee) Physical Examination Vital Signs: Vital Signs Temperature 98.4 F 05/29/20 05:02 Pulse Rate 58 L 05/29/20 05:02 Respiratory Rate 20 05/29/20 05:02 Blood Pressure 141/67 05/29/20 05:02 O2 Sat by Pulse Oximetry (%) 95 05/29/20 04:41 Constitutional: Yes: No Distress, Calm, Obese Eyes: Yes: WNL, Conjunctiva Clear, EOM Intact, PERRL HENT: Yes: WNL, Atraumatic, Normocephalic Neck: Yes: WNL, Supple, Trachea Midline Cardiovascular: Yes: Regular Rate and Rhythm, S1, S2 Respiratory: Yes: Regular, CTA Bilaterally Gastrointestinal: Yes: Soft, Abdomen, Obese, Hypoactive Bowel Sounds. No: Tenderness, Tenderness, Epigastrium ...Rectal Exam: Yes: Deferred Renal/: Yes: WNL Breast(s): Yes: WNL Musculoskeletal: Yes: Muscle Weakness, Other (right knee pain) Extremities: Yes: WNL Edema: No Peripheral Pulses WNL: Yes Neurological: Yes: Alert, Oriented, Cran Nerves II-XII Intact ...Motor Strength: LUE (3/5), LLE (3/5), RUE (3/5), RLE (3/5) Psychiatric: Yes: WNL, Alert, Oriented Labs: CBC, BMP 05/28/20 06:24 05/28/20 06:24 Hospitalist Encounter Assessment: This is a 49 y/o female with a past medical history of Multiple Sclerosis (diagnosed 2011), Anemia, Dry Eyes, Fibromyalgia. Admitted to /S for MS Flare.
[2020-05-29] MEDS: methylPREDNISolone NA SUCC 125 MG/2 ML VIAL IVPB SCH ×2 (06:35→18:20)
[2020-05-29] MEDS: PANTOPRAZOLE 40 MG TABLET PO SCH (06:35)
[2020-05-29] MEDS: POLYETHYLENE GLYCOL 3350 119 GM BTL PO SCH ×3 (06:35→22:37)
--- NOTE | 2020-05-29 07:38 | PN ---
Progress Note, Physician Chief Complaint: AWAKE ALERT FEELS GOOD TODAY EVENTS OVERNIGHT REVIEWED AWAITING CT HEAD RESULTS - Current Medication List Current Medications: Active Medications Acetaminophen (Tylenol -) 650 mg PO Q6H PRN PRN Reason: Fever Or Pain Last Admin: 05/28/20 22:24 Dose: 650 mg Documented by: Docusate Sodium (Colace -) 100 mg PO BID [facility] Last Admin: 05/28/20 22:24 Dose: 100 mg Documented by: Enoxaparin Sodium (Lovenox -) 40 mg SQ DAILY [facility] Last Admin: 05/28/20 09:01 Dose: 40 mg Documented by: Melatonin (Melatonin) 5 mg PO HS PRN PRN Reason: INSOMNIA Last Admin: 05/28/20 22:25 Dose: 5 mg Documented by: Methylprednisolone Sodium Succinate (Solu-Medrol -) 250 mg IVPB Q12H [facility] Last Admin: 05/29/20 06:35 Dose: 250 mg Documented by: Pantoprazole Sodium (Protonix -) 40 mg PO ACBK [facility] Last Admin: 05/29/20 06:35 Dose: 40 mg Documented by: Polyethylene Glycol (Miralax (For Daily Use) -) 17 gm PO TID [facility] Last Admin: 05/29/20 06:35 Dose: 17 gm Documented by: - Objective Vital Signs: Vital Signs Temperature 98.3 F 05/29/20 06:42 Pulse Rate 64 05/29/20 06:42 Respiratory Rate 20 05/29/20 06:42 Blood Pressure 138/75 05/29/20 06:42 O2 Sat by Pulse Oximetry (%) 95 05/29/20 04:41 Constitutional: Yes: Mild Distress Cardiovascular: Yes: Regular Rate and Rhythm Respiratory: Yes: WNL Gastrointestinal: Yes: Soft, Abdomen, Obese Genitourinary: Yes: WNL Musculoskeletal: Yes: Muscle Weakness Edema: No Integumentary: Yes: Other Wound/Incision: Yes: Clean/Dry Neurological: Yes: Pre-Existing Deficit, Weakness ...Motor Strength: LLE, RLE Psychiatric: Yes: WNL Labs: CBC, BMP 05/28/20 06:24 05/28/20 06:24 Problem List - Problems (1) Arm weakness Code(s): R29.898 - OTH SYMPTOMS AND SIGNS INVOLVING THE MUSCULOSKELETAL SYSTEM (2) Multiple sclerosis Code(s): G35 - MULTIPLE SCLEROSIS (3) Weakness Code(s): R53.1 - WEAKNESS Assessment/Plan STEROIDS WILL TAPER SLOWLY DVT PROPHYLAXIS PT EVAL SNF PLACEMENT MONITOR LABS
[2020-05-29] MEDS: ACETAMINOPHEN 325 MG TABLET (FP) PO PRN ×2 (07:39→13:04)
[2020-05-29] MEDS: DOCUSATE SODIUM 100 MG CAPSULE (FP) PO SCH ×2 (09:09→22:37)
[2020-05-29] MEDS: ENOXAPARIN NA (PORCINE) 40 MG/0.4 ML DISP.SYRIN SQ SCH (09:09)
[2020-05-30] MEDS: POLYETHYLENE GLYCOL 3350 119 GM BTL PO SCH ×2 (06:26→14:08)
[2020-05-30] MEDS: PANTOPRAZOLE 40 MG TABLET PO SCH (06:37)
[2020-05-30] MEDS: methylPREDNISolone NA SUCC 125 MG/2 ML VIAL IVPB SCH (06:37)
--- NOTE | 2020-05-30 08:59 | PN ---
Progress Note, Physician History of Present Illness: events noted Chart reviewed Feels much better Seen on the medical floor Yesterday unfortunately she fell - Current Medication List Current Medications: Active Medications Acetaminophen (Tylenol -) 650 mg PO Q6H PRN PRN Reason: Fever Or Pain Last Admin: 05/29/20 13:04 Dose: 650 mg Documented by: Docusate Sodium (Colace -) 100 mg PO BID [facility] Last Admin: 05/29/20 22:37 Dose: Not Given Documented by: Enoxaparin Sodium (Lovenox -) 40 mg SQ DAILY [facility] Last Admin: 05/29/20 09:09 Dose: 40 mg Documented by: Melatonin (Melatonin) 5 mg PO HS PRN PRN Reason: INSOMNIA Last Admin: 05/28/20 22:25 Dose: 5 mg Documented by: Methylprednisolone Sodium Succinate (Solu-Medrol -) 250 mg IVPB Q12H [facility] Last Admin: 05/30/20 06:37 Dose: 250 mg Documented by: Pantoprazole Sodium (Protonix -) 40 mg PO ACBK [facility] Last Admin: 05/30/20 06:37 Dose: 40 mg Documented by: Polyethylene Glycol (Miralax (For Daily Use) -) 17 gm PO TID [facility] Last Admin: 05/30/20 06:26 Dose: Not Given Documented by: - Objective Vital Signs: Vital Signs Temperature 98.2 F 05/30/20 06:32 Pulse Rate 58 L 05/30/20 06:32 Respiratory Rate 20 05/30/20 06:32 Blood Pressure 137/70 05/30/20 06:32 O2 Sat by Pulse Oximetry (%) 97 05/30/20 06:32 Constitutional: Yes: Well Nourished Eyes: Yes: WNL HENT: Yes: WNL Neurological: Yes: Alert, Oriented, Babinski negative, Cran Nerves II-XII Intact ...Motor Strength: WNL Labs: CBC, BMP 05/28/20 06:24 05/28/20 06:24 Problem List - Problems (1) Multiple sclerosis Assessment/Plan: 1. Stop the Solu-Medrol. 2. Prednisone 60 mg for 4 days 40 mg for 4 days 20 mg for one week. 3. Discharge planning. 4. Continue GI prophylaxis. 5. Continue Copaxone for now with the plan to switch the patient to oral immune modulator as an outpatient Code(s): G35 - MULTIPLE SCLEROSIS
[2020-05-30] MEDS: DOCUSATE SODIUM 100 MG CAPSULE (FP) PO SCH (09:23)
[2020-05-30] MEDS: ENOXAPARIN NA (PORCINE) 40 MG/0.4 ML DISP.SYRIN SQ SCH (09:23)
[2020-05-30] MEDS: ACETAMINOPHEN 325 MG TABLET (FP) PO PRN ×2 (09:23→15:36)
--- NOTE | 2020-05-30 11:26 | DS ---
Physical Examination Vital Signs: Vital Signs Temperature 98.3 F 05/30/20 09:29 Pulse Rate 79 05/30/20 09:29 Respiratory Rate 20 05/30/20 09:29 Blood Pressure 137/83 05/30/20 09:29 O2 Sat by Pulse Oximetry (%) 97 05/30/20 09:29 Findings/Remarks: 49 year old female patient with past medical history that includes Multiple Sclerosis diagnosed [address] Leon, anemia, dry eyes, and fibromyalgia, who presented to the emergency room with 2 days of leg heaviness and weakness with headache and electric shocks down her spine and tingling in her hands and feet. The patient reports a band-like headache that wraps around her head. She also has a feeling of significant muscle tightness in her legs and feet bilaterally that hurts. Passive movement of her legs elicits so much pain that the patient jumps up in bed. Her legs are so weak that she is unable to stand or move her legs that much, but she report having no problems with her balance. She has a cane to help her ambulate as well. She also feels mild lightheadedness and is very tired. She says that she can know when her MS will get worse based on how fatigued she feels. Recently she was able to sleep 14 ho urs but still feel fatigued upon awakening, so she knew her MS was getting worse. The patient also has constipation where she goes to the bathroom once or twice a week. She has been constipated for over a year. She takes both Miralax and Docusate every day, but is afraid of getting addicted to Docusate, so she sometimes only takes the Miralax. The patient reports being compliant with all of her medications. She takes Glatiramir 20mg/mL SQ daily for her MS, and was recently in the past year prescribed Baclofen, which is now a dose of 80mg Baclofen, which is split 40mg in the morning and 40 mg in the afternoon. (1) Multiple sclerosis Assessment/Plan: -Neurology consult -Stress steroids -MRI brain without contrast reviewed -PT -Continue capaxone Constitutional: Yes: Well Nourished, No Distress, Calm Cardiovascular: Yes: Regular Rate and Rhythm Respiratory: Yes: Regular, CTA Bilaterally Gastrointestinal: Yes: Normal Bowel Sounds, Soft Renal/: Yes: WNL Musculoskeletal: Yes: Muscle Weakness Extremities: Yes: WNL Edema: No Peripheral Pulses WNL: Yes Neurological: Yes: Alert, Oriented Psychiatric: Yes: Alert, Oriented Labs: CBC, BMP 05/28/20 06:24 05/28/20 06:24 Discharge Summary Problems reviewed: Yes Reason For Visit: WEAKNESS,MULTIPLE SCLEROSIS Current Active Problems Arm weakness (Acute) Multiple sclerosis (Acute) Weakness (Acute) Condition: Stable - Instructions Diet, Activity, Other Instructions: Prednisone 60 mg for 4 days 40 mg for 4 days 20 mg for one week. Continue copaxone for now Follow up with Neurology outpatient Referrals: Uriel Muhammad [Primary Care Provider] - Disposition: [facility]/HOME HEALTH CARE - Home Medications Comprehensive Discharge Medication List: Ambulatory Orders Pantoprazole Sodium [Protonix -] 40 mg PO DAILY #30 tablet.ec 05/13/19 Polyethylene Glycol 3350 [Miralax 119 gm Btl -] 17 gm PO BID bottle 05/13/19 Acetaminophen [Tylenol .Regular Strength -] 650 mg PO Q6H PRN tablet 05/30/20 Docusate Sodium [Colace -] 300 mg PO HS #90 capsule 05/30/20 Melatonin 5 mg PO HS PRN #30 tab 05/30/20 Pantoprazole Sodium [Protonix -] 40 mg PO ACBK #30 tab 05/30/20 Polyethylene Glycol 3350 [Miralax 119 gm Btl -] 17 gm PO TID #1 bottle 05/30/20 Sennosides [Senna] 2 tab PO HS #60 tablet 05/30/20 predniSONE [Deltasone -] See Taper PO ASDIR #30 tablet 05/30/20
[2020-05-30 13:31] VITALS: BP 154/79; PULSE 81; TEMP 98.1
== END 2020-05-30 17:57 | disposition home health service (06) | DRG 43 ==
LOC: JER 16:59 → SUPCPDRO 16:59 → JERBED 19:44 → J7W 05-26 00:14
PROVIDERS: ADMIT Internal Medicine; ATTEND Family Medicine
DX: G35 Multiple sclerosis (principal); D64.9 Anemia, unspecified; M79.7 Fibromyalgia; E66.9 Obesity, unspecified; H04.129 Dry eye syndrome of unspecified lacrimal gland; Z68.34 Body mass index [BMI] 34.0-34.9, adult; K59.00 Constipation, unspecified; R42 Dizziness and giddiness; G44.209 Tension-type headache, unspecified, not intractable
CPT/HCPCS: 36415; 70450-TC; 70553-TC; 71045-TC-FY; 72148-TC; 80048; 80053; 81003; 82962; 83036; 83735; 84100; 85025; 85027; 93005; 93010; 97116-GP; 97162-GP; 99285-25; A9579; U0003

== ENCOUNTER 2020-06-03 14:06 | Emergency (ER) | payer OTHER ==
[2020-06-03 14:12] VITALS: BP 169/74; PULSE 84; TEMP 99.1; BMI 34.1
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
[2020-06-03] MEDS ORDERED: ACETAMINOPHEN 500 MG TABLET (FP) PO ONE (15:08)
[2020-06-03] MEDS ORDERED: ACETAMINOPHEN 500 MG TABLET (FP) ONE ×2 (15:11)
== END 2020-06-03 15:17 | disposition home or self-care (01) ==
LOC: JERFT 14:06
DX: M79.631 Pain in right forearm (principal)
CPT/HCPCS: 73090-TC-RT-FY; 73110-TC-RT-FY; 99284-25

== ENCOUNTER 2021-05-19 14:14 | Emergency (ER) | payer OTHER ==
[2021-05-19 14:19] VITALS: BP 123/84; PULSE 88; BMI 31.8
[2021-05-19 15:40] LABS: BASO % 0.6 % (0-2.0); EOS % 0.7 % (0-4.5); HEMATOCRIT 40.5 % (32.4-45.2); LYMPH % 22.7 % (8-40); MCH 29.5 pg (25.7-33.7); MCHC 34.5 g/dl (32.0-36.0); MEAN CELL VOLUME 85.6 fl (80-96); MEAN PLT VOLUME 8.8 fl (7.5-11.1); MONO % 7.5 % (3.8-10.2); NEUT % 68.5 % (42.8-82.8); PLATELET COUNT 241 10^3/uL (134-434); RBC 4.73 M/mm3 (3.60-5.2); RDW 12.7 % (11.6-15.6); WHITE BLOOD COUNT 6.7 K/mm3 (4.0-10.0)
[2021-05-19 16:03] LABS: ALBUMIN 4.1 g/dl (3.4-5.0); BLOOD UREA NITROGEN 8.8 mg/dL (7-18); CALCIUM 9.6 mg/dL (8.5-10.1)
[2021-05-19 16:06] LABS: CREATININE 0.8 mg/dL (0.55-1.3)
[2021-05-19 16:08] LABS: BILIRUBIN,TOTAL 0.8 mg/dL (0.2-1); TOT PROT 7.6 g/dl (6.4-8.2)
[2021-05-19] MEDS ORDERED: methylPREDNISolone NA SUCC 1000 MG/8 ML VIAL IVPB ONE (16:31)
[2021-05-19] MEDS ORDERED: methylPREDNISolone NA SUCC 125 MG/2 ML VIAL ONE ×2 (16:41→17:28)
[2021-05-19] MEDS ORDERED: ACETAMINOPHEN 1000 MG/100 ML VIAL (NON FORMULARY) IVPB ONE (18:22)
[2021-05-19] MEDS ORDERED: ACETAMINOPHEN INJECTION 100 ML IVPB ONE (18:30)
[2021-05-19 18:31] LABS: URIC ACID 5.5 mg/dL (2.6-7.2)
== END 2021-05-19 20:27 | disposition home or self-care (01) ==
LOC: JER 14:14
PROC: 3E0333Z Introduction of Anti-inflammatory into Peripheral Vein, Percutaneous Approach (ICD-10-PCS; principal; 2021-05-19)
PROC: 3E033GC Introduction of Other Therapeutic Substance into Peripheral Vein, Percutaneous Approach (ICD-10-PCS; 2021-05-19)
DX: M79.672 Pain in left foot (principal)
CPT/HCPCS: 36415; 71046-TC-FY; 72131-TC; 73630-TC-LT; 80053; 84550; 85025; 93005; 93010; 99285-25; C9803; J0131; U0003; U0005

== ENCOUNTER 2021-09-27 13:46 | Inpatient (IN) | payer OTHER ==
[2021-09-27] MEDS ORDERED: methylPREDNISolone NA SUCC 125 MG/2 ML VIAL IVPUSH ONE (17:09)
[2021-09-27] MEDS ORDERED: methylPREDNISolone NA SUCC 1000 MG/8 ML VIAL ONE (18:23)
[2021-09-27 18:25] LABS: BASO % 0.3 % (0-2.0); EOS % 1.1 % (0-4.5); HEMATOCRIT 40.9 % (32.4-45.2); LYMPH % 26.3 % (8-40); MCH 29.3 pg (25.7-33.7); MCHC 34.2 g/dl (32.0-36.0); MEAN CELL VOLUME 85.6 fl (80-96); MEAN PLT VOLUME 9.3 fl (7.5-11.1); MONO % 6.3 % (3.8-10.2); PLATELET COUNT 216 10^3/uL (134-434); RBC 4.77 M/mm3 (3.60-5.2); RDW 12.8 % (11.6-15.6)
[2021-09-27 18:51] LABS: CALCIUM 9.6 mg/dL (8.5-10.1)
[2021-09-27 18:53] LABS: ALBUMIN 3.8 g/dl (3.4-5.0); BLOOD UREA NITROGEN 10.8 mg/dL (7-18)
[2021-09-27 18:56] LABS: CREATININE 0.7 mg/dL (0.55-1.3)
[2021-09-27 18:57] LABS: BILIRUBIN,TOTAL 0.7 mg/dL (0.2-1); TOT PROT 7.5 g/dl (6.4-8.2)
[2021-09-27] MEDS ORDERED: ACETAMINOPHEN 325 MG TABLET (FP) PO PRN (19:56)
[2021-09-27] MEDS ORDERED: POLYETHYLENE GLYCOL (HEALTHYLAX) 3350 17 GM PACKET PO PRN (19:56)
[2021-09-27 22:13] LABS: EPI CELLS 24 /uL (0-25.1); HYALINE CASTS 0 /uL (0-3.1); PH,URINE >= 9.0 (5.0-8.0); URINE APPEARANCE TURBID; URINE BACTERIA 521 /uL (0-1359); URINE BILIRUBIN NEGATIVE (NEGATIVE); URINE COLOR YELLOW; URINE GLUCOSE (UA) NEGATIVE (NEGATIVE); URINE KETONE NEGATIVE (NEGATIVE); URINE LEUK ESTERASE TRACE (NEGATIVE); URINE NITRITE NEGATIVE (NEGATIVE); URINE PROTEIN NEGATIVE (NEGATIVE); URINE RBC 12 /uL (0-23.9); URINE WBC 15 /uL (0-25.8)
[2021-09-28] MEDS ORDERED: ACETAMINOPHEN INJECTION 100 ML IVPB ONE (00:09)
[2021-09-28] MEDS ORDERED: MELATONIN 1 MG TABLET PO ONE (00:15)
[2021-09-28] MEDS: ACETAMINOPHEN 1000 MG/100 ML BAG IVPB PRN ×3 (00:22→21:30)
[2021-09-28] MEDS: INSULIN SLIDING SCALE (NOVOLOG) 1 VIAL SQ SCH ×5 (00:22→21:50)
[2021-09-28] MEDS ORDERED: MELATONIN 5 MG TABLETS PO ONE (01:06)
[2021-09-28] MEDS: BACLOFEN 10 MG TABLET (FP) PO PRN ×3 (01:25→22:28)
[2021-09-28 02:40] VITALS: BMI 32.1
[2021-09-28 08:51] LABS: HEMATOCRIT 42.1 % (32.4-45.2); HEMOGLOBIN 14.2 GM/dL (10.7-15.3); LYMPH % 10.4 % (8-40); MCH 29.1 pg (25.7-33.7); MCHC 33.8 g/dl (32.0-36.0); MEAN CELL VOLUME 86.2 fl (80-96); MEAN PLT VOLUME 9.5 fl (7.5-11.1); MONO % 0.5 % (3.8-10.2); NEUT % 89.1 % (42.8-82.8); PLATELET COUNT 232 10^3/uL (134-434); RBC 4.88 M/mm3 (3.60-5.2); RDW 12.6 % (11.6-15.6); WHITE BLOOD COUNT 7.9 K/mm3 (4.0-10.0)
[2021-09-28 08:57] LABS: INR 1.04 (0.83-1.09); PROTHROMBIN TIME (PATIENT) 12.2 SEC (9.7-13.0)
[2021-09-28 08:59] LABS: ACTIVATED PTT 29.8 SECONDS (25.2-36.5)
[2021-09-28 09:18] LABS: BLOOD UREA NITROGEN 12.5 mg/dL (7-18); CALCIUM 10.2 mg/dL (8.5-10.1); MAGNESIUM 2.2 mg/dL (1.8-2.4)
[2021-09-28 09:22] LABS: CREATININE 0.7 mg/dL (0.55-1.3)
[2021-09-28] MEDS ORDERED: PT OWN MED DRAWER 7, Y5N ONE (10:14)
[2021-09-28] MEDS: ASPIRIN COATED 81 MG TABLET.EC PO SCH (10:22)
[2021-09-28] MEDS: ENOXAPARIN NA (PORCINE) 40 MG/0.4 ML DISP.SYRIN SQ SCH (10:22)
[2021-09-28] MEDS: FAMOTIDINE 20 MG TABLET PO SCH (10:22)
[2021-09-28] MEDS: TOPIRAMATE 25 MG TABLET PO SCH (12:12)
[2021-09-28] MEDS: methylPREDNISolone NA SUCC 125 MG/2 ML VIAL IVPB SCH (14:31)
[2021-09-28] MEDS ORDERED: MELATONIN 5 MG TABLETS PO PRN (22:00)
[2021-09-29] MEDS: INSULIN SLIDING SCALE (NOVOLOG) 1 VIAL SQ SCH ×3 (06:12→17:08)
[2021-09-29] MEDS: ACETAMINOPHEN 500 MG TABLET (FP) PO PRN ×2 (09:25→17:06)
[2021-09-29] MEDS: ENOXAPARIN NA (PORCINE) 40 MG/0.4 ML DISP.SYRIN SQ SCH (10:06)
[2021-09-29] MEDS: FAMOTIDINE 20 MG TABLET PO SCH (10:06)
[2021-09-29] MEDS: methylPREDNISolone NA SUCC 125 MG/2 ML VIAL IVPB SCH (10:06)
[2021-09-29] MEDS: ASPIRIN COATED 81 MG TABLET.EC PO SCH (10:06)
[2021-09-29] MEDS: TOPIRAMATE 25 MG TABLET PO SCH (10:18)
[2021-09-29 11:39] VITALS: BP 154/84; PULSE 76; TEMP 98.4
[2021-09-29] MEDS ORDERED: INSULIN (NOVOLOG MIX 70/30) 100 UNITS/ML MDV SQ ONE (16:54)
[2021-09-29] MEDS ORDERED: INSULIN (NOVOLOG) ASPART 100 UNITS/ML 10ML VIAL ONE (16:55)
== END 2021-09-29 18:13 | disposition home or self-care (01) | DRG 43 ==
LOC: JER 13:46 → JERBED 16:32 → J7W 09-28 02:25
PROVIDERS: ADMIT Hospitalist; ATTEND Family Medicine
DX: G35 Multiple sclerosis (principal); M79.7 Fibromyalgia; R73.9 Hyperglycemia, unspecified; T38.0X5A Adverse effect of glucocorticoids and synthetic analogues, initial encounter; H53.8 Other visual disturbances; R20.2 Paresthesia of skin
CPT/HCPCS: 36415; 70553-TC; 80048; 80053; 81003; 82962; 83735; 85025; 85610; 85730; 87086; 93005; 93010; 97116-GP; 97161-GP; 99285-25; C1887; C9803; J0131; J0475; U0003; U0005

== ENCOUNTER 2022-02-27 14:11 | Inpatient (IN) | payer OTHER ==
[2022-02-27 14:21] VITALS: BMI 31.9
[2022-02-27] MEDS ORDERED: methylPREDNISolone NA SUCC 1000 MG/8 ML VIAL IVPB ONE (16:10)
[2022-02-27] MEDS ORDERED: methylPREDNISolone NA SUCC 1000 MG/8 ML VIAL ONE (16:16)
[2022-02-27 16:56] LABS: BASO % 0.5 % (0-2.0); EOS % 3.5 % (0-4.5); HEMATOCRIT 38.8 % (32.4-45.2); HEMOGLOBIN 13.3 GM/dL (10.7-15.3); LYMPH % 26.2 % (8-40); MCH 29.3 pg (25.7-33.7); MCHC 34.3 g/dl (32.0-36.0); MEAN CELL VOLUME 85.5 fl (80-96); MEAN PLT VOLUME 9.6 fl (7.5-11.1); MONO % 6.3 % (3.8-10.2); NEUT % 63.5 % (42.8-82.8); PLATELET COUNT 222 10^3/uL (134-434); RBC 4.54 M/mm3 (3.60-5.2); RDW 12.7 % (11.6-15.6); WHITE BLOOD COUNT 5.9 K/mm3 (4.0-10.0)
[2022-02-27 17:17] LABS: CALCIUM 9.5 mg/dL (8.5-10.1)
[2022-02-27 17:18] LABS: BLOOD UREA NITROGEN 9.8 mg/dL (7-18)
[2022-02-27 17:21] LABS: CREATININE 0.9 mg/dL (0.55-1.3)
[2022-02-27 17:23] LABS: BILIRUBIN,TOTAL 0.6 mg/dL (0.2-1); TOT PROT 7.2 g/dl (6.4-8.2)
[2022-02-27] MEDS ORDERED: PANTOPRAZOLE 40 MG TABLET PO ONE (18:46)
[2022-02-27] MEDS: PANTOPRAZOLE 40 MG TABLET PO SCH (18:49)
[2022-02-27] MEDS ORDERED: ACETAMINOPHEN INJECTION 100 ML IVPB ONE (21:29)
[2022-02-27] MEDS: ACETAMINOPHEN 1000 MG/100 ML BAG IVPB PRN (21:35)
[2022-02-27] MEDS: INSULIN SLIDING SCALE (NOVOLOG) 1 VIAL SQ SCH (22:32)
[2022-02-27] MEDS: MELATONIN 5 MG TABLETS PO PRN (23:00)
[2022-02-28] MEDS: ACETAMINOPHEN 1000 MG/100 ML BAG IVPB PRN ×3 (06:05→23:05)
[2022-02-28] MEDS: INSULIN SLIDING SCALE (NOVOLOG) 1 VIAL SQ SCH ×4 (06:10→23:11)
[2022-02-28] MEDS ORDERED: TOPIRAMATE 25 MG TABLET PO SCH ×2 (10:00→10:52)
[2022-02-28] MEDS: POLYETHYLENE GLYCOL (HEALTHYLAX) 3350 17 GM PACKET PO SCH (10:26)
[2022-02-28] MEDS: PANTOPRAZOLE 40 MG TABLET PO SCH (10:26)
[2022-02-28] MEDS: ENOXAPARIN NA (PORCINE) 40 MG/0.4 ML DISP.SYRIN SQ SCH (10:26)
[2022-02-28] MEDS ORDERED: TOPIRAMATE 25 MG TABLET PO ONE (11:15)
[2022-02-28] MEDS: methylPREDNISolone NA SUCC 1000 MG/8 ML VIAL IVPB SCH (11:27)
[2022-02-28] MEDS: metoPROLOL SUCCINATE 25 MG TAB.SR.24H (FP) PO SCH (15:09)
[2022-02-28] MEDS: BACLOFEN 10 MG TABLET (FP) PO SCH (23:01)
[2022-02-28] MEDS: DULoxetine HCL 30 MG CAPSULE.DR PO SCH (23:01)
[2022-02-28] MEDS: MELATONIN 5 MG TABLETS PO PRN (23:11)
[2022-03-01] MEDS: INSULIN SLIDING SCALE (NOVOLOG) 1 VIAL SQ SCH ×4 (06:36→22:35)
[2022-03-01 09:08] LABS: BASO % 0.1 % (0-2.0); HEMATOCRIT 37.7 % (32.4-45.2); LYMPH % 8.4 % (8-40); MCH 29.5 pg (25.7-33.7); MCHC 34.5 g/dl (32.0-36.0); MEAN CELL VOLUME 85.3 fl (80-96); MEAN PLT VOLUME 9.4 fl (7.5-11.1); MONO % 3.9 % (3.8-10.2); NEUT % 87.6 % (42.8-82.8); PLATELET COUNT 238 10^3/uL (134-434); RBC 4.42 M/mm3 (3.60-5.2); RDW 12.7 % (11.6-15.6); WHITE BLOOD COUNT 15.7 K/mm3 (4.0-10.0)
[2022-03-01 09:31] LABS: CALCIUM 9.2 mg/dL (8.5-10.1); MAGNESIUM 2.3 mg/dL (1.8-2.4)
[2022-03-01 09:32] LABS: ALBUMIN 3.8 g/dl (3.4-5.0); BLOOD UREA NITROGEN 19.3 mg/dL (7-18)
[2022-03-01 09:34] LABS: CREATININE 0.7 mg/dL (0.55-1.3)
[2022-03-01 09:35] LABS: PHOSPHOROUS 2.9 mg/dL (2.5-4.9)
[2022-03-01 09:36] LABS: BILIRUBIN,TOTAL 1.3 mg/dL (0.2-1)
[2022-03-01] MEDS ORDERED: TOPIRAMATE 100 MG TABLET PO SCH ×2 (10:00→22:00)
[2022-03-01] MEDS: ASPIRIN COATED 81 MG TABLET.EC PO SCH (11:03)
[2022-03-01] MEDS: PANTOPRAZOLE 40 MG TABLET PO SCH (11:03)
[2022-03-01] MEDS: POLYETHYLENE GLYCOL (HEALTHYLAX) 3350 17 GM PACKET PO SCH (11:03)
[2022-03-01] MEDS: ENOXAPARIN NA (PORCINE) 40 MG/0.4 ML DISP.SYRIN SQ SCH ×2 (11:03→11:17)
[2022-03-01] MEDS: BACLOFEN 10 MG TABLET (FP) PO SCH ×2 (11:03→22:29)
[2022-03-01] MEDS: ACETAMINOPHEN 1000 MG/100 ML BAG IVPB PRN (11:05)
[2022-03-01] MEDS: metoPROLOL SUCCINATE 25 MG TAB.SR.24H (FP) PO SCH (11:08)
[2022-03-01] MEDS: methylPREDNISolone NA SUCC 1000 MG/8 ML VIAL IVPB SCH (14:24)
[2022-03-01] MEDS ORDERED: ACETAMINOPHEN 500 MG TABLET (FP) PO PRN (16:37)
[2022-03-01] MEDS: TOPIRAMATE 100 MG TABLET PO SCH (22:29)
[2022-03-01] MEDS: DULoxetine HCL 30 MG CAPSULE.DR PO SCH (22:29)
[2022-03-02] MEDS: INSULIN SLIDING SCALE (NOVOLOG) 1 VIAL SQ SCH ×3 (06:02→17:42)
[2022-03-02 07:35] VITALS: PULSE 67
[2022-03-02] MEDS ORDERED: methylPREDNISolone NA SUCC 1000 MG/8 ML VIAL IVPB ONE (10:00)
[2022-03-02] MEDS: BACLOFEN 10 MG TABLET (FP) PO SCH (11:04)
[2022-03-02] MEDS: ASPIRIN COATED 81 MG TABLET.EC PO SCH (11:04)
[2022-03-02] MEDS: metoPROLOL SUCCINATE 25 MG TAB.SR.24H (FP) PO SCH (11:05)
[2022-03-02] MEDS: TOPIRAMATE 100 MG TABLET PO SCH (11:07)
[2022-03-02] MEDS: ENOXAPARIN NA (PORCINE) 40 MG/0.4 ML DISP.SYRIN SQ SCH (11:07)
[2022-03-02] MEDS: PANTOPRAZOLE 40 MG TABLET PO SCH (11:07)
[2022-03-02] MEDS: POLYETHYLENE GLYCOL (HEALTHYLAX) 3350 17 GM PACKET PO SCH (11:12)
[2022-03-02 11:41] LABS: HEMATOCRIT 38.5 % (32.4-45.2); HEMOGLOBIN 12.7 GM/dL (10.7-15.3); LYMPH % 10.2 % (8-40); MCH 28.4 pg (25.7-33.7); MCHC 32.9 g/dl (32.0-36.0); MEAN CELL VOLUME 86.5 fl (80-96); MEAN PLT VOLUME 9.8 fl (7.5-11.1); MONO % 4.3 % (3.8-10.2); NEUT % 85.5 % (42.8-82.8); PLATELET COUNT 221 10^3/uL (134-434); RBC 4.46 M/mm3 (3.60-5.2); RDW 12.9 % (11.6-15.6); WHITE BLOOD COUNT 11.3 K/mm3 (4.0-10.0)
[2022-03-02 12:06] LABS: CREATININE 0.7 mg/dL (0.55-1.3); PHOSPHOROUS 2.8 mg/dL (2.5-4.9)
[2022-03-02 12:07] LABS: ALBUMIN 3.5 g/dl (3.4-5.0); BLOOD UREA NITROGEN 17.9 mg/dL (7-18)
[2022-03-02 12:08] LABS: BILIRUBIN,TOTAL 0.4 mg/dL (0.2-1); TOT PROT 6.5 g/dl (6.4-8.2)
[2022-03-02 12:09] LABS: CALCIUM 8.8 mg/dL (8.5-10.1); MAGNESIUM 2.2 mg/dL (1.8-2.4)
[2022-03-02 14:52] VITALS: BP 133/60; TEMP 97.4
== END 2022-03-02 19:00 | disposition home or self-care (01) | DRG 43 ==
LOC: JER 14:11 → JERBED 17:27 → J7W 22:20
PROVIDERS: ADMIT Internal Medicine; ATTEND Internal Medicine
DX: G35 Multiple sclerosis (principal); G43.909 Migraine, unspecified, not intractable, without status migrainosus; M79.7 Fibromyalgia; R20.2 Paresthesia of skin; R53.1 Weakness; R73.9 Hyperglycemia, unspecified; T38.0X5A Adverse effect of glucocorticoids and synthetic analogues, initial encounter; G81.91 Hemiplegia, unspecified affecting right dominant side; R29.898 Other symptoms and signs involving the musculoskeletal system; I25.10 Atherosclerotic heart disease of native coronary artery without angina pectoris; F41.9 Anxiety disorder, unspecified
CPT/HCPCS: 0241U-QW; 36415; 70553-TC; 72156-TC; 80053; 82962; 83735; 84100; 85025; 93005; 93010; 97116-GP; 97162-GP; 99285-25; A9579; J0475

== ENCOUNTER 2022-09-03 17:49 | Emergency (ER) | payer OTHER ==
[2022-09-03] MEDS ORDERED: ALBUTEROL SO4 0.042% IH SOL 1.25 MG/3 ML VIAL.NEB NEB ONE (18:27)
[2022-09-03] MEDS ORDERED: ACETAMINOPHEN 325 MG TABLET (FP) PO ONE (18:27)
[2022-09-03] MEDS ORDERED: ACETAMINOPHEN 325 MG TABLET (FP) ONE (18:36)
[2022-09-03] MEDS ORDERED: ALBUTEROL SO4 0.083% IH SOL 2.5 MG/3 ML VIAL.NEB. NEB ONE (18:36)
[2022-09-03 19:10] VITALS: BP 113/75; PULSE 64; RESP 18; TEMP 99.2; BMI 30.7
== END 2022-09-03 19:15 | disposition home or self-care (01) ==
LOC: FER 17:49
PROC: 3E0F7GC Introduction of Other Therapeutic Substance into Respiratory Tract, Via Natural or Artificial Opening (ICD-10-PCS; principal; 2022-09-03)
DX: J06.9 Acute upper respiratory infection, unspecified (principal)
CPT/HCPCS: 0241U-QW; 99283-25

== ENCOUNTER 2022-09-23 18:45 | Inpatient (IN) | payer OTHER ==
[2022-09-23 18:53] VITALS: BMI 30.5
[2022-09-23] MEDS ORDERED: ACETAMINOPHEN 500 MG TABLET (FP) PO ONE (19:57)
[2022-09-23] MEDS ORDERED: DEXAMETHASONE 4 MG TABLET (FP) PO ONE (19:57)
[2022-09-23] MEDS ORDERED: LIDOCAINE 5% TOPICAL PATCH TP ONE (19:58)
[2022-09-23] MEDS ORDERED: DEXAMETHASONE 4 MG TABLET (FP) ONE (20:12)
[2022-09-23] MEDS ORDERED: ACETAMINOPHEN 325 MG TABLET (FP) ONE (20:12)
[2022-09-23] MEDS ORDERED: LIDOCAINE 5% TOPICAL PATCH ONE ×2 (20:13→20:19)
[2022-09-23] MEDS ORDERED: MAGNESIUM SULF 50% (8.12 MEQ/2 ML-1 GM VIAL) IVPB ONE (22:10)
[2022-09-23] MEDS ORDERED: methylPREDNISolone NA SUCC 1000 MG/8 ML VIAL IVPB ONE (22:12)
[2022-09-23] MEDS ORDERED: methylPREDNISolone NA SUCC 1000 MG/8 ML VIAL ONE (23:01)
[2022-09-23] MEDS ORDERED: MAGNESIUM SULFATE IN WATER 2 GM/50 ML IVPB IVPB ONE (23:01)
[2022-09-23 23:29] LABS: BASO % 0.2 % (0-2.0); EOS % 0.9 % (0-4.5); HEMATOCRIT 37.9 % (32.4-45.2); HEMOGLOBIN 12.5 GM/dL (10.7-15.3); LYMPH % 21.1 % (8-40); MCH 28.7 pg (25.7-33.7); MCHC 32.9 g/dl (32.0-36.0); MEAN CELL VOLUME 87.3 fl (80-96); MEAN PLT VOLUME 9.1 fl (7.5-11.1); MONO % 4.3 % (3.8-10.2); NEUT % 73.5 % (42.8-82.8); PLATELET COUNT 238 10^3/uL (134-434); RBC 4.34 M/mm3 (3.60-5.2); RDW 13.2 % (11.6-15.6); WHITE BLOOD COUNT 7.1 K/mm3 (4.0-10.0)
[2022-09-23 23:46] LABS: ALBUMIN 3.6 g/dl (3.4-5.0); BLOOD UREA NITROGEN 15.4 mg/dL (7-18); CALCIUM 9.1 mg/dL (8.5-10.1)
[2022-09-23 23:49] LABS: CREATININE 0.7 mg/dL (0.55-1.3)
[2022-09-23 23:51] LABS: BILIRUBIN,TOTAL 0.4 mg/dL (0.2-1); TOT PROT 6.7 g/dl (6.4-8.2)
[2022-09-24] MEDS: LIDOCAINE PATCH REMOVAL MC SCH ×2 (03:50→21:29)
[2022-09-24] MEDS: INSULIN SLIDING SCALE (NOVOLOG) 1 VIAL SQ SCH ×3 (06:34→16:54)
[2022-09-24] MEDS: BACLOFEN 10 MG TABLET (FP) PO SCH ×3 (06:34→21:28)
[2022-09-24 08:10] LABS: BASO % 0.1 % (0-2.0); HEMATOCRIT 37.8 % (32.4-45.2); HEMOGLOBIN 12.4 GM/dL (10.7-15.3); LYMPH % 15.2 % (8-40); MCH 28.4 pg (25.7-33.7); MCHC 32.8 g/dl (32.0-36.0); MEAN CELL VOLUME 86.4 fl (80-96); MEAN PLT VOLUME 9.5 fl (7.5-11.1); MONO % 0.6 % (3.8-10.2); NEUT % 84.1 % (42.8-82.8); PLATELET COUNT 245 10^3/uL (134-434); RBC 4.37 M/mm3 (3.60-5.2); RDW 13.2 % (11.6-15.6); WHITE BLOOD COUNT 5.5 K/mm3 (4.0-10.0)
[2022-09-24 08:30] LABS: CALCIUM 9.1 mg/dL (8.5-10.1)
[2022-09-24 08:31] LABS: ALBUMIN 3.6 g/dl (3.4-5.0); BLOOD UREA NITROGEN 13.4 mg/dL (7-18); MAGNESIUM 1.9 mg/dL (1.8-2.4)
[2022-09-24 08:34] LABS: CREATININE 0.8 mg/dL (0.55-1.3); PHOSPHOROUS 2.6 mg/dL (2.5-4.9)
[2022-09-24 08:35] LABS: BILIRUBIN,TOTAL 0.4 mg/dL (0.2-1)
[2022-09-24] MEDS ORDERED: ACETAMINOPHEN 1000 MG/100 ML BAG IVPB ONE (08:45)
[2022-09-24 10:36] LABS: PH,URINE 6.5 (5.0-8.0); URINE APPEARANCE CLEAR; URINE BILIRUBIN NEGATIVE (NEGATIVE); URINE COLOR YELLOW; URINE GLUCOSE (UA) 2+ (NEGATIVE); URINE KETONE NEGATIVE (NEGATIVE); URINE LEUK ESTERASE NEGATIVE (NEGATIVE); URINE NITRITE NEGATIVE (NEGATIVE); URINE PROTEIN NEGATIVE (NEGATIVE)
[2022-09-24] MEDS: DULoxetine HCL 30 MG CAPSULE.DR PO SCH (12:54)
[2022-09-24] MEDS: ENOXAPARIN NA (PORCINE) 40 MG/0.4 ML DISP.SYRIN SQ SCH (12:54)
[2022-09-24] MEDS: TOPIRAMATE 25 MG TABLET PO SCH (12:55)
[2022-09-24] MEDS: PANTOPRAZOLE 40 MG TABLET PO SCH (12:55)
[2022-09-24] MEDS: ASPIRIN COATED 81 MG TABLET.EC PO SCH (12:55)
[2022-09-24] MEDS: PREGABALIN 50 MG CAPSULE PO SCH (12:55)
[2022-09-24] MEDS: metoPROLOL SUCCINATE 25 MG TAB.SR.24H (FP) PO SCH (12:55)
[2022-09-24] MEDS: amLODIPine BESYLATE 5 MG TABLET (FP) PO SCH (12:55)
[2022-09-24] MEDS: methylPREDNISolone NA SUCC 1000 MG/8 ML VIAL IVPB SCH (12:56)
[2022-09-24] MEDS: FAMOTIDINE 40 MG TABLET PO SCH (13:17)
[2022-09-24] MEDS: DICLOFENAC SODIUM 75 MG, DICLOFENAC SODIUM 25 MG PO SCH (14:50)
[2022-09-24] MEDS ORDERED: DICLOFENAC SODIUM 25 MG TABLET.DR PO SCH (15:15)
[2022-09-25] MEDS: INSULIN SLIDING SCALE (NOVOLOG) 1 VIAL SQ SCH ×5 (00:05→21:29)
[2022-09-25] MEDS: BACLOFEN 10 MG TABLET (FP) PO SCH ×3 (05:44→21:29)
[2022-09-25] MEDS ORDERED: ACETAMINOPHEN 325 MG TABLET (FP) PO PRN (08:59)
[2022-09-25] MEDS: ENOXAPARIN NA (PORCINE) 40 MG/0.4 ML DISP.SYRIN SQ SCH (09:35)
[2022-09-25] MEDS: DULoxetine HCL 30 MG CAPSULE.DR PO SCH (09:35)
[2022-09-25] MEDS: metoPROLOL SUCCINATE 25 MG TAB.SR.24H (FP) PO SCH (09:36)
[2022-09-25] MEDS: amLODIPine BESYLATE 5 MG TABLET (FP) PO SCH (09:36)
[2022-09-25] MEDS: ASPIRIN COATED 81 MG TABLET.EC PO SCH (09:36)
[2022-09-25] MEDS: PANTOPRAZOLE 40 MG TABLET PO SCH (09:36)
[2022-09-25] MEDS: PREGABALIN 50 MG CAPSULE PO SCH (09:36)
[2022-09-25] MEDS: ACETAMINOPHEN 325 MG TABLET (FP) PO PRN ×2 (09:37→20:27)
[2022-09-25] MEDS: FAMOTIDINE 40 MG TABLET PO SCH (09:56)
[2022-09-25] MEDS: DICLOFENAC SODIUM 75 MG, DICLOFENAC SODIUM 25 MG PO SCH (09:56)
[2022-09-25] MEDS: TOPIRAMATE 25 MG TABLET PO SCH (09:56)
[2022-09-25] MEDS: methylPREDNISolone NA SUCC 1000 MG/8 ML VIAL IVPB SCH (09:59)
[2022-09-26] MEDS: BACLOFEN 10 MG TABLET (FP) PO SCH ×2 (06:39→13:30)
[2022-09-26] MEDS: INSULIN SLIDING SCALE (NOVOLOG) 1 VIAL SQ SCH ×3 (06:40→16:03)
[2022-09-26] MEDS ORDERED: PNEUMOC 20-VAL CONJ-DIP CRM/PF 0.5 ML SYRINGE IM ONE (07:42)
[2022-09-26] MEDS: DULoxetine HCL 30 MG CAPSULE.DR PO SCH (09:31)
[2022-09-26] MEDS: PREGABALIN 50 MG CAPSULE PO SCH (09:31)
[2022-09-26] MEDS: metoPROLOL SUCCINATE 25 MG TAB.SR.24H (FP) PO SCH (09:31)
[2022-09-26] MEDS: ENOXAPARIN NA (PORCINE) 40 MG/0.4 ML DISP.SYRIN SQ SCH (09:31)
[2022-09-26] MEDS: PANTOPRAZOLE 40 MG TABLET PO SCH (09:31)
[2022-09-26] MEDS: ASPIRIN COATED 81 MG TABLET.EC PO SCH (09:32)
[2022-09-26] MEDS: amLODIPine BESYLATE 5 MG TABLET (FP) PO SCH (09:32)
[2022-09-26] MEDS: TOPIRAMATE 25 MG TABLET PO SCH (09:32)
[2022-09-26 09:34] LABS: HEMATOCRIT 35.3 % (32.4-45.2); HEMOGLOBIN 11.4 GM/dL (10.7-15.3); LYMPH % 11.7 % (8-40); MCH 28.2 pg (25.7-33.7); MCHC 32.4 g/dl (32.0-36.0); MEAN PLT VOLUME 9.7 fl (7.5-11.1); MONO % 5.1 % (3.8-10.2); NEUT % 83.2 % (42.8-82.8); PLATELET COUNT 210 10^3/uL (134-434); RBC 4.06 M/mm3 (3.60-5.2); RDW 13.1 % (11.6-15.6); WHITE BLOOD COUNT 11.1 K/mm3 (4.0-10.0)
[2022-09-26] MEDS: methylPREDNISolone NA SUCC 1000 MG/8 ML VIAL IVPB SCH (09:55)
[2022-09-26] MEDS: DICLOFENAC SODIUM 75 MG, DICLOFENAC SODIUM 25 MG PO SCH (09:55)
[2022-09-26 10:06] LABS: CALCIUM 8.4 mg/dL (8.5-10.1)
[2022-09-26 10:08] LABS: ALBUMIN 3.1 g/dl (3.4-5.0); BLOOD UREA NITROGEN 17.4 mg/dL (7-18)
[2022-09-26 10:11] LABS: BILIRUBIN,TOTAL 0.3 mg/dL (0.2-1); CREATININE 0.7 mg/dL (0.55-1.3)
[2022-09-26 10:26] VITALS: RESP 18
[2022-09-26] MEDS ORDERED: INSULIN (NOVOLOG) ASPART 100 UNITS/ML 10ML VIAL ONE ×2 (10:52→16:06)
[2022-09-26] MEDS: ACETAMINOPHEN 325 MG TABLET (FP) PO PRN (17:41)
[2022-09-26 17:52] VITALS: BP 147/75; PULSE 77; TEMP 98.3
== END 2022-09-26 18:54 | disposition home or self-care (01) | DRG 43 ==
LOC: JER 18:45 → JERBED 23:19 → J7W 09-24 03:23
PROVIDERS: ADMIT Internal Medicine; ATTEND Internal Medicine
DX: G35 Multiple sclerosis (principal); I10 Essential (primary) hypertension; H53.2 Diplopia; M79.7 Fibromyalgia; R73.9 Hyperglycemia, unspecified; T38.0X5A Adverse effect of glucocorticoids and synthetic analogues, initial encounter; Y92.89 Other specified places as the place of occurrence of the external cause
CPT/HCPCS: 0241U-QW; 36415; 70552-TC; 80053; 81003; 82962; 83036; 83735; 84100; 85025; 87086; 93005; 93010; 97116-GP; 97162-GP; 99285-25; J0475

== ENCOUNTER 2023-03-26 18:49 | Inpatient (IN) | payer OTHER ==
[2023-03-26] MEDS ORDERED: methylPREDNISolone NA SUCC 1000 MG/8 ML VIAL IVPB ONE (20:46)
[2023-03-26] MEDS ORDERED: methylPREDNISolone NA SUCC 1000 MG/8 ML VIAL ONE (21:13)
[2023-03-26 21:36] LABS: BASO % 0.5 % (0-2.0); EOS % 1.5 % (0-4.5); HEMATOCRIT 40.2 % (32.4-45.2); HEMOGLOBIN 13.4 GM/dL (10.7-15.3); LYMPH % 32.5 % (8-40); MCH 28.2 pg (25.7-33.7); MCHC 33.3 g/dl (32.0-36.0); MEAN CELL VOLUME 84.8 fl (80-96); MEAN PLT VOLUME 9.3 fl (7.5-11.1); MONO % 8.3 % (3.8-10.2); NEUT % 57.2 % (42.8-82.8); PLATELET COUNT 222 10^3/uL (134-434); RBC 4.74 M/mm3 (3.60-5.2); RDW 12.9 % (11.6-15.6); WHITE BLOOD COUNT 6.5 K/mm3 (4.0-10.0)
[2023-03-26 21:50] LABS: POTASSIUM 4.7 mmol/L (3.5-5.1)
[2023-03-26 21:53] LABS: ALBUMIN 3.9 g/dl (3.4-5.0); BLOOD UREA NITROGEN 16.9 mg/dL (7-18); CALCIUM 9.3 mg/dL (8.5-10.1)
[2023-03-26 21:58] LABS: BILIRUBIN,TOTAL 0.4 mg/dL (0.2-1); TOT PROT 7.4 g/dl (6.4-8.2)
[2023-03-26 22:02] LABS: EPI CELLS 12 /uL (0-25.1); HYALINE CASTS 0 /uL (0-3.1); URINE APPEARANCE CLOUDY; URINE BACTERIA 304 /uL (0-1359); URINE BILIRUBIN NEGATIVE (NEGATIVE); URINE COLOR YELLOW; URINE GLUCOSE (UA) NEGATIVE (NEGATIVE); URINE KETONE NEGATIVE (NEGATIVE); URINE LEUK ESTERASE TRACE (NEGATIVE); URINE NITRITE NEGATIVE (NEGATIVE); URINE PROTEIN NEGATIVE (NEGATIVE); URINE RBC 11 /uL (0-23.9); URINE WBC 16 /uL (0-25.8)
[2023-03-27] MEDS ORDERED: ACETAMINOPHEN 325 MG TABLET (FP) ONE (01:09)
[2023-03-27] MEDS: ACETAMINOPHEN 325 MG TABLET (FP) PO PRN ×3 (01:13→22:25)
[2023-03-27 03:32] VITALS: BMI 32.8
[2023-03-27 09:37] LABS: HEMATOCRIT 41.1 % (32.4-45.2); HEMOGLOBIN 13.4 GM/dL (10.7-15.3); LYMPH % 11.8 % (8-40); MCH 27.8 pg (25.7-33.7); MCHC 32.7 g/dl (32.0-36.0); MEAN CELL VOLUME 85.1 fl (80-96); MEAN PLT VOLUME 9.9 fl (7.5-11.1); MONO % 0.6 % (3.8-10.2); NEUT % 87.6 % (42.8-82.8); PLATELET COUNT 222 10^3/uL (134-434); RBC 4.83 M/mm3 (3.60-5.2); RDW 12.6 % (11.6-15.6); WHITE BLOOD COUNT 9.1 K/mm3 (4.0-10.0)
[2023-03-27 09:47] LABS: INR 1.07 (0.83-1.09); PROTHROMBIN TIME (PATIENT) 12.4 SEC (9.7-13.0)
[2023-03-27 09:50] LABS: ACTIVATED PTT 28.8 SECONDS (25.2-36.5)
[2023-03-27 09:56] LABS: POTASSIUM 3.8 mmol/L (3.5-5.1)
[2023-03-27 10:06] LABS: BLOOD UREA NITROGEN 16.4 mg/dL (7-18); CALCIUM 9.3 mg/dL (8.5-10.1); MAGNESIUM 1.8 mg/dL (1.8-2.4)
[2023-03-27 10:09] LABS: PHOSPHOROUS 1.9 mg/dL (2.5-4.9)
[2023-03-27] MEDS: methylPREDNISolone NA SUCC 40 MG/1 ML VIAL IVPUSH SCH ×2 (11:06→17:42)
[2023-03-27] MEDS: ENOXAPARIN NA (PORCINE) 40 MG/0.4 ML DISP.SYRIN SQ SCH (11:07)
[2023-03-27] MEDS: KETOROLAC TROMETHAMINE 30 MG/1 ML VIAL IVPUSH SCH ×2 (11:11→17:42)
[2023-03-27] MEDS: DULoxetine HCL 30 MG CAPSULE.DR PO SCH (11:13)
[2023-03-27] MEDS: metoPROLOL SUCCINATE 25 MG TAB.SR.24H (FP) PO SCH (11:13)
[2023-03-27] MEDS: PREGABALIN 50 MG CAPSULE PO SCH ×2 (14:39→22:09)
[2023-03-27] MEDS: INSULIN SLIDING SCALE (NOVOLOG) 1 VIAL SQ SCH ×2 (17:36→22:09)
[2023-03-27] MEDS: MELATONIN 5 MG TABLETS PO PRN (22:09)
[2023-03-28] MEDS: methylPREDNISolone NA SUCC 40 MG/1 ML VIAL IVPUSH SCH ×3 (01:45→17:55)
[2023-03-28] MEDS: KETOROLAC TROMETHAMINE 30 MG/1 ML VIAL IVPUSH SCH ×3 (01:45→17:49)
[2023-03-28] MEDS: PREGABALIN 50 MG CAPSULE PO SCH ×3 (05:21→21:58)
[2023-03-28] MEDS: INSULIN SLIDING SCALE (NOVOLOG) 1 VIAL SQ SCH ×4 (06:15→22:02)
[2023-03-28] MEDS: DULoxetine HCL 30 MG CAPSULE.DR PO SCH (09:17)
[2023-03-28] MEDS: metoPROLOL SUCCINATE 25 MG TAB.SR.24H (FP) PO SCH (09:17)
[2023-03-28] MEDS: ENOXAPARIN NA (PORCINE) 40 MG/0.4 ML DISP.SYRIN SQ SCH (09:18)
[2023-03-28] MEDS: NAPH,MB-DB/K PH,MBDB POWDER PACKET PO SCH (21:58)
[2023-03-28] MEDS: MELATONIN 5 MG TABLETS PO PRN (21:59)
[2023-03-29] MEDS: methylPREDNISolone NA SUCC 40 MG/1 ML VIAL IVPUSH SCH ×3 (01:31→22:39)
[2023-03-29] MEDS: KETOROLAC TROMETHAMINE 30 MG/1 ML VIAL IVPUSH SCH ×3 (01:33→18:36)
[2023-03-29] MEDS: PREGABALIN 50 MG CAPSULE PO SCH ×3 (06:02→22:39)
[2023-03-29] MEDS: INSULIN SLIDING SCALE (NOVOLOG) 1 VIAL SQ SCH ×4 (06:12→22:55)
[2023-03-29] MEDS ORDERED: INSULIN SLIDING SCALE (NOVOLOG) 1 VIAL SQ ONE (06:51)
[2023-03-29] MEDS: DULoxetine HCL 30 MG CAPSULE.DR PO SCH (09:31)
[2023-03-29] MEDS: NAPH,MB-DB/K PH,MBDB POWDER PACKET PO SCH ×2 (09:31→22:39)
[2023-03-29] MEDS: ENOXAPARIN NA (PORCINE) 40 MG/0.4 ML DISP.SYRIN SQ SCH (09:31)
[2023-03-29] MEDS: metoPROLOL SUCCINATE 25 MG TAB.SR.24H (FP) PO SCH (09:31)
[2023-03-29 09:49] LABS: HEMATOCRIT 38.7 % (32.4-45.2); HEMOGLOBIN 12.9 GM/dL (10.7-15.3); MCHC 33.4 g/dl (32.0-36.0); MEAN PLT VOLUME 9.7 fl (7.5-11.1); PLATELET COUNT 226 10^3/uL (134-434); RDW 13.1 % (11.6-15.6); WHITE BLOOD COUNT 12.9 K/mm3 (4.0-10.0)
[2023-03-29 10:16] LABS: POTASSIUM 4.5 mmol/L (3.5-5.1)
[2023-03-29 10:19] LABS: CALCIUM 9.2 mg/dL (8.5-10.1)
[2023-03-29 10:20] LABS: ALBUMIN 3.4 g/dl (3.4-5.0); BLOOD UREA NITROGEN 24.1 mg/dL (7-18); MAGNESIUM 2.1 mg/dL (1.8-2.4)
[2023-03-29 10:23] LABS: CREATININE 0.8 mg/dL (0.55-1.3); PHOSPHOROUS 3.9 mg/dL (2.5-4.9)
[2023-03-29 10:25] LABS: BILIRUBIN,TOTAL 0.4 mg/dL (0.2-1); TOT PROT 6.7 g/dl (6.4-8.2)
[2023-03-29] MEDS: ACETAMINOPHEN 325 MG TABLET (FP) PO PRN ×2 (16:20→22:43)
[2023-03-29] MEDS: MELATONIN 5 MG TABLETS PO PRN (22:43)
[2023-03-30] MEDS: KETOROLAC TROMETHAMINE 30 MG/1 ML VIAL IVPUSH SCH ×3 (01:22→17:34)
[2023-03-30] MEDS: PREGABALIN 50 MG CAPSULE PO SCH ×3 (05:23→22:30)
[2023-03-30] MEDS: INSULIN SLIDING SCALE (NOVOLOG) 1 VIAL SQ SCH ×4 (06:05→22:29)
[2023-03-30] MEDS: ENOXAPARIN NA (PORCINE) 40 MG/0.4 ML DISP.SYRIN SQ SCH (09:18)
[2023-03-30] MEDS: metoPROLOL SUCCINATE 25 MG TAB.SR.24H (FP) PO SCH (09:19)
[2023-03-30] MEDS: DULoxetine HCL 30 MG CAPSULE.DR PO SCH (09:20)
[2023-03-30] MEDS: methylPREDNISolone NA SUCC 40 MG/1 ML VIAL IVPUSH SCH ×2 (09:20→22:29)
[2023-03-30] MEDS: NAPH,MB-DB/K PH,MBDB POWDER PACKET PO SCH ×2 (09:20→22:30)
[2023-03-30] MEDS: MELATONIN 5 MG TABLETS PO PRN (22:31)
[2023-03-31] MEDS: KETOROLAC TROMETHAMINE 30 MG/1 ML VIAL IVPUSH SCH (03:43)
[2023-03-31] MEDS: PREGABALIN 50 MG CAPSULE PO SCH ×3 (05:31→22:53)
[2023-03-31] MEDS: INSULIN SLIDING SCALE (NOVOLOG) 1 VIAL SQ SCH ×4 (06:01→22:53)
[2023-03-31] MEDS: NAPH,MB-DB/K PH,MBDB POWDER PACKET PO SCH ×2 (09:39→22:53)
[2023-03-31] MEDS: methylPREDNISolone NA SUCC 40 MG/1 ML VIAL IVPUSH SCH ×2 (09:39→22:52)
[2023-03-31] MEDS: DULoxetine HCL 30 MG CAPSULE.DR PO SCH (09:39)
[2023-03-31] MEDS: ENOXAPARIN NA (PORCINE) 40 MG/0.4 ML DISP.SYRIN SQ SCH (09:40)
[2023-03-31] MEDS: metoPROLOL SUCCINATE 25 MG TAB.SR.24H (FP) PO SCH (09:40)
[2023-03-31] MEDS: MELATONIN 5 MG TABLETS PO PRN (22:53)
[2023-04-01] MEDS: PREGABALIN 50 MG CAPSULE PO SCH ×3 (06:11→21:16)
[2023-04-01] MEDS: INSULIN SLIDING SCALE (NOVOLOG) 1 VIAL SQ SCH ×4 (06:12→21:16)
[2023-04-01] MEDS: ENOXAPARIN NA (PORCINE) 40 MG/0.4 ML DISP.SYRIN SQ SCH (10:58)
[2023-04-01] MEDS: NAPH,MB-DB/K PH,MBDB POWDER PACKET PO SCH ×2 (10:58→21:16)
[2023-04-01] MEDS: DULoxetine HCL 30 MG CAPSULE.DR PO SCH (10:58)
[2023-04-01] MEDS: metoPROLOL SUCCINATE 25 MG TAB.SR.24H (FP) PO SCH (10:59)
[2023-04-01] MEDS ORDERED: methylPREDNISolone NA SUCC 40 MG/1 ML VIAL IVPUSH ONE (12:30)
[2023-04-01] MEDS: methylPREDNISolone NA SUCC 40 MG/1 ML VIAL IVPUSH SCH (15:33)
[2023-04-01 19:17] VITALS: RESP 18
[2023-04-01] MEDS: MELATONIN 5 MG TABLETS PO PRN (21:16)
[2023-04-02] MEDS: PREGABALIN 50 MG CAPSULE PO SCH ×2 (06:43→13:57)
[2023-04-02] MEDS: INSULIN SLIDING SCALE (NOVOLOG) 1 VIAL SQ SCH ×3 (06:50→16:36)
[2023-04-02] MEDS: NAPH,MB-DB/K PH,MBDB POWDER PACKET PO SCH (09:16)
[2023-04-02] MEDS: DULoxetine HCL 30 MG CAPSULE.DR PO SCH (09:16)
[2023-04-02] MEDS: metoPROLOL SUCCINATE 25 MG TAB.SR.24H (FP) PO SCH (09:16)
[2023-04-02] MEDS: ENOXAPARIN NA (PORCINE) 40 MG/0.4 ML DISP.SYRIN SQ SCH (09:16)
[2023-04-02] MEDS ORDERED: methylPREDNISolone NA SUCC 40 MG/1 ML VIAL IVPUSH SCH (10:00)
[2023-04-02 16:57] VITALS: PULSE 63
[2023-04-02 17:34] VITALS: BP 127/82; TEMP 98.6
== END 2023-04-02 18:49 | disposition home or self-care (01) | DRG 43 ==
LOC: JER 18:49 → JERBED 21:44 → J5S 03-27 02:28
PROVIDERS: ADMIT Family Medicine; ATTEND Family Medicine
DX: G35 Multiple sclerosis (principal); I10 Essential (primary) hypertension; E78.5 Hyperlipidemia, unspecified; F32.A Depression, unspecified
CPT/HCPCS: 0241U-QW; 36415; 70450-TC; 70553-TC; 71045-TC-FY; 72156-TC; 72157-TC; 72158-TC; 80048; 80053; 81003; 82607; 82962; 83735; 84100; 85025; 85027; 85610; 85730; 87086; 97116-GP; 97161-GP; 99285-25; A9579